=== PATIENT | male | born 1990 | race Caucasian/White ===

== ENCOUNTER 2021-07-11 22:11 | Inpatient (IN) ==
[2021-07-11] MEDS ORDERED: PIPERACILLIN/TAZOBACTAM 4.5 GM/120 ML BAG IV ONE (22:24)
[2021-07-11] MEDS ORDERED: PIPERACILL/TAZOBAC CONSULT ACTIVE PRN (22:24)
[2021-07-11 22:56] LABS: Basophils # (auto) 0.02 K/uL (0-0.2); Basophils % (auto) 0.1 %; Eosinophils # (auto) 0.11 K/uL (0-0.5); Eosinophils % (auto) 0.6 %; Hematocrit (blood only) 43.5 % (42-52); Hemoglobin 15.7 g/dL (14.0-18.0); Immature Granulocytes # (auto) 0.09 K/uL (0.00-0.02); Immature Granulocytes % (auto) 0.5 %; Lymphocytes # (auto) 3.03 K/uL (1.2-3.4); Lymphocytes % (auto) 17.1 %; Mean Corpuscular Hemoglobin 32.8 pg (25-34); Mean Corpuscular Hgb Conc 36.1 g/dL (32-36); Mean Platelet Volume 11.1 fL (7.4-10.4); Monocytes % (auto) 9.6 %; Neutrophils # (auto) 12.72 K/uL (1.4-6.5); Neutrophils % (auto) 72.1 %; Platelet Count 236 K/uL (130-400); RDW Coefficient of Variation 12.3 % (11.5-14.5); RDW Standard Deviation 40.7 fL (36.4-46.3); Red Blood Count 4.78 M/uL (4.7-6.1); White Blood Count 17.67 K/uL (4.8-10.8)
[2021-07-11] MEDS ORDERED: SODIUM CHLORIDE 0.9% 1000ML 1,000 ML IV ONE (23:05)
[2021-07-11 23:06] LABS: INR 0.9 (0.9-1.1); Partial Thromboplastin Ratio 0.9; Partial Thromboplastin Time 24.7 Seconds (21.0-31.0); Prothrombin Time 9.3 Seconds (9.0-12.0)
[2021-07-11 23:11] LABS: Calcium 8.9 mg/dl (8.5-10.1); Est GFR (African American) 100.2 ml/min; Est GFR (Non-African American) 86.4 ml/min; Magnesium 2.3 mg/dl (1.8-2.4); Potassium 3.8 mmol/L (3.5-5.1)
[2021-07-11 23:13] LABS: Bilirubin,Total 1.1 mg/dl (0.2-1); Globulin 4.2 gm/dl (2.5-4.0); Total Protein 8.2 gm/dl (6.4-8.2)
--- NOTE | 2021-07-11 23:38 | Emergency Department Note ---
History of Present Illness General Chief complaint: Arm Pain Stated complaint: RIGHT ARM PAIN Time Seen by Provider: 07/11/21 22:17 History of Present Illness Maximum Pain Intensity: 6 This 30-year-old who was seen here yesterday for dog bite to the right forearm that was sutured presents to the ER complaining of infection to the right forearm Location: Right forearm Quality: Red and swollen Severity: Moderate Duration: Today Timing: Today Context: Patient was concerned and came in Modifying factors: better with nothing; worse with palpation Patient states the redness is gotten worse throughout the day. He has been taking his Augmentin. Patient denies chest pain, dyspnea, fevers, flulike illness. Home Medications Medication Instructions Recorded Confirmed Type amoxicillin 875 mg-potassium 1 tab PO BID #8 tab 07/10/21 07/11/21 Rx clavulanate 125 mg tablet (Augmentin) bupropion HCl 300 mg 24 hr tablet, 300 mg PO DAILY 07/10/21 07/11/21 History extended release levocetirizine 5 mg tablet 5 mg PO QPM 07/10/21 07/11/21 History Allergies Allergy/AdvReac Type Severity Reaction Status Date / Time Sulfa (Sulfonamide Allergy Unknown UNKNOWN--HAPPENED Unverified 07/11/21 22:30 Antibiotics) A CHILD SEAFOOD Allergy Intermediate Hives Uncoded 07/11/21 22:30 Past Med/Surg History Medical History Depression Surgical History No significant past surgical history Social History Smoking Status: Former smoker Tobacco Type: Cigarettes Preferred Language: Serbian marital status: Single current occupational status: employed Feels Safe at Home: Yes Review of Systems A total of 10 systems reviewed and were otherwise negative Physical Exam Vital Signs Vital Signs - 24 hr 07/11/21 22:12 07/11/21 23:11 07/11/21 23:14 Temperature 36.7 C Temperature Source Temporal Artery Scan Pulse Rate 114 H 115 H Pulse Rate [Finger] 114 H Respiratory Rate 20 18 22 Respiratory Effort / Characteristics Non-Labored Spontaneous Non-Labored Spontaneous Respiratory Depth Normal Normal Blood Pressure 145/90 H Blood Pressure [Left Arm] 165/129 H Blood Pressure Mean 108 Blood Pressure Mean [Left Arm] 141 Blood Pressure Position Sitting Pulse Oximetry 96 100 100 Oxygen Delivery Method Room Air Room Air Room Air Sepsis Recent Fever Within 48 Hours No Sepsis New/Unexplained Change in Mental Status N/A Sepsis Action Taken by Nursing No Action Required VITALS: Vitals are noted on the nurse's note and reviewed by myself. Vital signs stable. GENERAL: Pleasant male, in no acute distress, nondiaphoretic, well-developed well-nourished. SKIN: Capillary reflex less than 2 seconds. Right forearm with extensive cellulitis with lymphadenitis extending up to the bicep region HEENT: Normocephalic. PERRLA. EOMI. Nares patent. Mucous membranes moist. Neck is supple without nuchal rigidity. HEART: Regular rate and rhythm without murmurs gallops or rubs. LUNGS: Clear to auscultation bilaterally without wheezes, rales or rhonchi. No retractions or accessory muscle use. ABDOMEN: Positive bowel sounds x 4. Normal tympanic percussion. Soft, nontender, without masses or organomegaly. Patel sign negative. No guarding or rebound tenderness. MUSCULOSKELETAL: No gross musculoskeletal defects. Right forearm tender to palpation. Sutures were opened up and a wound culture was taken moderate amount of bloody purulent material was expressed. NEURO: Patient was alert and oriented to person place and time. No focal neurological deficits. Course Administered Medications Discontinued Medications Piperacillin Sod/Tazobactam Sod (Zosyn) 4.5 gm in 120 mls @ 240 mls/hr IV NOW ONE Stop: 07/11/21 22:53 Last Infusion: 07/11/21 23:39 Dose: 0 mls/hr Documented by: [id number] Admin: 07/11/21 22:51 Dose: 240 mls/hr Documented by: [id number] Sodium Chloride (Nss 1000ml) 1,000 mls @ 999 mls/hr IV .Q1H1M ONE Stop: 07/12/21 00:05 Last Admin: 07/11/21 23:17 Dose: 999 mls/hr Documented by: [id number] Medical Decision Making Medical Records Attestation: I reviewed the patient's medical records. Home Medications Current Medication List: was personally reviewed by me Laboratory Data Attestation: I reviewed the patient's lab results. Result diagrams: 07/11/21 22:30 07/11/21 22:30 Lab Results 07/11/21 07/11/21 07/11/21 Range/Units 22:30 22:30 22:30 WBC 17.67 H (4.8-10.8) K/uL RBC 4.78 (4.7-6.1) M/uL Hgb 15.7 (14.0-18.0) g/dL Hct 43.5 (42-52) % MCV 91.0 (80-100) fL MCH 32.8 (25-34) pg MCHC 36.1 H (32-36) g/dL RDW Std Deviation 40.7 (36.4-46.3) fL RDW Coeff of Eloisa 12.3 (11.5-14.5) % Plt Count 236 (130-400) K/uL MPV 11.1 H (7.4-10.4) fL Immature Gran % (Auto) 0.5 % Neut % (Auto) 72.1 % Lymph % (Auto) 17.1 % [place] % (Auto) 9.6 % Eos % (Auto) 0.6 % Baso % (Auto) 0.1 % Neut # (Auto) 12.72 H (1.4-6.5) K/uL Lymph # (Auto) 3.03 (1.2-3.4) K/uL [place] # (Auto) 1.70 H (0.11-0.59) K/uL Eos # (Auto) 0.11 (0-0.5) K/uL Baso # (Auto) 0.02 (0-0.2) K/uL Immature Gran # (Auto) 0.09 H (0.00-0.02) K/uL PT 9.3 (9.0-12.0) Seconds INR 0.9 (0.9-1.1) APTT 24.7 (21.0-31.0) Seconds PTT Ratio 0.9 Sodium 137 (136-145) mmol/L Potassium 3.8 (3.5-5.1) mmol/L Chloride 106 (98-107) mmol/L Carbon Dioxide 26 (21-32) mmol/L Anion Gap 5.0 (3-11) BUN 9 (7-18) mg/dl Creatinine 1.14 (0.6-1.4) mg/dl Est Cr Clr Drug Dosing 122.0 ml/min Est GFR ( Amer) 100.2 ml/min Est GFR (Non-Af Amer) 86.4 ml/min BUN/Creatinine Ratio 8.0 L (10-20) Glucose 106 H (70-99) mg/dl Lactate (0.4-2.0) mmol/L Calcium 8.9 (8.5-10.1) mg/dl Magnesium 2.3 (1.8-2.4) mg/dl Total Bilirubin 1.1 H (0.2-1) mg/dl AST 28 (15-37) U/L ALT 69 (12-78) U/L Alkaline Phosphatase 80 (45-117) U/L Total Protein 8.2 (6.4-8.2) gm/dl Albumin 4.0 (3.4-5.0) gm/dl Globulin 4.2 H (2.5-4.0) gm/dl Albumin/Globulin Ratio 1.0 (0.9-2) COVID-19 Eval Order SARS-CoV-2 (PCR) (Negative) 07/11/21 07/11/21 07/11/21 Range/Units 22:30 22:42 22:42 WBC (4.8-10.8) K/uL RBC (4.7-6.1) M/uL Hgb (14.0-18.0) g/dL Hct (42-52) % MCV (80-100) fL MCH (25-34) pg MCHC (32-36) g/dL RDW Std Deviation (36.4-46.3) fL RDW Coeff of Eloisa (11.5-14.5) % Plt Count (130-400) K/uL MPV (7.4-10.4) fL Immature Gran % (Auto) % Neut % (Auto) % Lymph % (Auto) % [place] % (Auto) % Eos % (Auto) % Baso % (Auto) % Neut # (Auto) (1.4-6.5) K/uL Lymph # (Auto) (1.2-3.4) K/uL [place] # (Auto) (0.11-0.59) K/uL Eos # (Auto) (0-0.5) K/uL Baso # (Auto) (0-0.2) K/uL Immature Gran # (Auto) (0.00-0.02) K/uL PT (9.0-12.0) Seconds INR (0.9-1.1) APTT (21.0-31.0) Seconds PTT Ratio Sodium (136-145) mmol/L Potassium (3.5-5.1) mmol/L Chloride (98-107) mmol/L Carbon Dioxide (21-32) mmol/L Anion Gap (3-11) BUN (7-18) mg/dl Creatinine (0.6-1.4) mg/dl Est Cr Clr Drug Dosing ml/min Est GFR ( Amer) ml/min Est GFR (Non-Af Amer) ml/min BUN/Creatinine Ratio (10-20) Glucose (70-99) mg/dl Lactate 1.3 (0.4-2.0) mmol/L Calcium (8.5-10.1) mg/dl Magnesium (1.8-2.4) mg/dl Total Bilirubin (0.2-1) mg/dl AST (15-37) U/L ALT (12-78) U/L Alkaline Phosphatase (45-117) U/L Total Protein (6.4-8.2) gm/dl Albumin (3.4-5.0) gm/dl Globulin (2.5-4.0) gm/dl Albumin/Globulin Ratio (0.9-2) COVID-19 Eval Order Covid19 at [facility] SARS-CoV-2 (PCR) NEGATIVE (Negative) Imaging Data Attestation: I personally reviewed and interpreted this imaging study as follows: [facility] Narrative Prior records reviewed and summarized as above. Triage Nursing notes reviewed. Additional history obtained from family. The patient's history was concerning for swelling and redness of the skin. Differential diagnosis: Etiologies such as infected dog bite cellulitis, abscess, MRSA infection, DVT, necrotizing fasciitis, dermatitis, drug eruption, as well as others were entertained.. Physical examination: The physical examination was consistent with infected dog bite ER treatment provided: Zosyn, IV fluids, wound culture sutures were opened up and moderate amount of of Purulent bloody material was expressed. On reassessment the patient felt better. Diagnostics interpreted by me: The labs revealed leukocytosis, blood culture pending Wound culture pending Negative lactic acid Imaging studies: Forearm x-ray with soft tissue swelling, no fracture or foreign body per my interpretation Consultation: A consultation was placed with the hospitalist. The case was discussed and diagnostics were reviewed. The patient was evaluated in the ER for further treatment. This appears to be infected dog bite. Patient started on antibiotics. Wound culture was sent. Sutures were opened up. Patient is agreeable to admission. By the evaluation outlined above emergent etiologies such as necrotizing fasciitis, DVT, as well as others were deemed relatively unlikely. The pt informed about the findings as listed above. All questions were answered and pleased with the treatment. The chart was completed utilizing [employer] Speech voice recognition software. Grammatical errors, random word insertions, pronoun errors, and incomplete sentences are an occassional consequence of this system due to software limitations, ambient noise, and hardware issues. Any formal questions or concerns about the content, text, or information contained within the body of this dictation should be directly addressed to the physician podiatrist assistant for clarification. Impression & Plan Infected dog bite of forearm, Failure of outpatient treatment Discharge Plan Visit Data Chief Complaint: Arm Pain Stated Complaint: RIGHT ARM PAIN ED Provider: Alfie Wood ED Midlevel Provider: Lona Ernst Discharge Problem: Infected dog bite of forearm, Failure of outpatient treatment Patient Disposition: Admitted As Inpatient Condition: Good Forms Stand Alone Forms: Garlik Prescriptions Prescriptions: No Action bupropion HCl 300 mg tablet extended release 24 hr 300 mg PO DAILY RF: 0 levocetirizine 5 mg tablet 5 mg PO QPM RF: 0 amoxicillin-pot clavulanate [Augmentin] 875-125 mg tablet 1 tab PO BID Qty: 8 RF: 0 Referrals Referrals: Chaitanya Jarvis DO [Primary Care Provider] - Discharge Problem: Infected dog bite of forearm Qualifiers: Encounter type: initial encounter Laterality: right Qualified Code(s): S51.851A - Open bite of right forearm, initial encounter
[2021-07-12 00:56] LABS: Thyroid Stimulating Hormone 2.11 uIu/ml (0.300-4.500)
--- NOTE | 2021-07-12 00:58 | History & Physical Report ---
Date of Service July 12, 2021 Assessment & Plan (1) Sepsis: Plan: Secondary to infected wound secondary to dog bite injury, right forearm rule out abscess Failed outpatient treatment Situational hypertension Medical telemetry CS, Zosyn CT right forearm RE swelling rule out abscess Orthopedics consult Re: Right forearm swelling N.p.o. until patient seen by Orthopedics in anticipation of procedure. Analgesia DVT prophylaxis. SCDs RE bloody right forearm drainage Full code Text document was generated using [employer] voice recognition software. It may contain grammatical or spelling errors. Kindly contact undersigned for clarification of any documentation item in question. History of Present Illness Chief Complaint: Worsening right forearm swelling Primary Care Provider: Chaitanya Jarvis DO History obtained from patient, family, and records. Medical history significant for allergic rhinitis, GERD. Patient was bitten on the right forearm by his girlfriend's parents rescue dog 2 days ago. Subsequent swelling. Patient consulted ER where subsequent wound repair was done. Patient discharged on Augmentin course. Worsening swelling despite compliance with antibiotic regimen. Temperature of 102 at home. No chest pain, no S OB. At the ER, sutures from right forearm were removed. Subsequent purulent bloody drainage noted. IV Zosyn given at the ER. 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[employer] Allergies Allergy/AdvReac Type Severity Reaction Status Date / Time shellfish derived Allergy Intermediate Hives Verified 07/12/21 09:14 Sulfa (Sulfonamide Allergy Unknown UNKNOWN--HAPPENED Unverified 07/11/21 22:30 Antibiotics) A CHILD Fish Containing Products Allergy Verified 07/12/21 09:13 Home Medications Medication Instructions Recorded Confirmed Type amoxicillin 875 mg-potassium 1 tab PO BID #8 tab 07/10/21 07/11/21 Rx clavulanate 125 mg tablet (Augmentin) bupropion HCl 300 mg 24 hr tablet, 300 mg PO DAILY 07/10/21 07/11/21 History extended release levocetirizine 5 mg tablet 5 mg PO QPM 07/10/21 07/11/21 History Past Med/Surg History Medical History Depression Surgical History No significant past surgical history Social History Smoking Status: Former smoker Tobacco Type: Cigarettes Do You Dip or Chew Tobacco: No; Hx Alcohol Use: Yes Alcohol type: hard liquor Hx Substance Use: No Preferred Language: Setswana Communication Ability: Effective 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 Beliefs That Will Affect Care: None marital status: Single Current Living Situation: Spouse current occupational status: employed Other Information That Helps Us Care for You: No Feels Safe at Home: Yes Safety Concerns: Feels Safe At This Time Assistive Devices: None Review of Systems Review of Systems: As per HPI, all 10 systems reviewed, all other ROS negative Physical Exam Physical Exam: GENERAL: Comfortable, morbidly obese, pleasant, no respiratory distress SKIN: Normal color, warm HEENT: [place] palpebral conjunctivae, no ptosis, dry buccal mucosa NECK : Supple, short neck, no tenderness CHEST : CTA, no tenderness HEART : Tachycardic, no obvious murmurs ABDOMEN: Some distention, nontender EXTREMITIES : Tender right forearm induration with serosanguineous drainage, minimal LE swelling/tenderness, no other conspicuous deformities noted NEUROLOGIC : Coherent, no facial asymmetry, no other gross focality Results & Data Results & Data ([facility]) Vital Signs (Past 12 Hours) Vital Signs Temp Pulse Pulse Resp BP BP Pulse Ox 07/11/21 23:14 115 H 22 100 07/11/21 23:11 114 H 18 165/129 H 100 07/11/21 22:12 36.7 C 114 H 20 145/90 H 96 Laboratory Results Laboratory Results WBC 17.67 K/uL (4.8-10.8) H 07/11/21 22:30 RBC 4.78 M/uL (4.7-6.1) 07/11/21 22:30 Hgb 15.7 g/dL (14.0-18.0) 07/11/21 22:30 Hct 43.5 % (42-52) 07/11/21 22:30 MCV 91.0 fL (80-100) 07/11/21 22:30 MCH 32.8 pg (25-34) 07/11/21 22:30 MCHC 36.1 g/dL (32-36) H 07/11/21 22:30 RDW Std Deviation 40.7 fL (36.4-46.3) 07/11/21: RDW Coeff of Eloisa 12.3 % (11.5-14.5) 07/11/21: Plt Count 236 K/uL (130-400) 07/11/21 22: MPV 11.1 fL (7.4-10.4) H 07/11/21 22:30 Immature Gran % (Auto) 0.5 % 07/11/21: Neut % (Auto) 72.1 % 07/11/21: Lymph % (Auto) 17.1 % 07/11/21: Winn % (Auto) 9.6 % 07/11/21: Eos % (Auto) 0.6 % 07/11/21: Baso % (Auto) 0.1 % 07/11/21: Neut # (Auto) 12.72 K/uL (1.4-6.5) H 07/11/21 22:30 Lymph # (Auto) 3.03 K/uL (1.2-3.4) 07/11/21 22:30 Winn # (Auto) 1.70 K/uL (0.11-0.59) H 07/11/21 22:30 Eos # (Auto) 0.11 K/uL (0-0.5) 07/11/21 22: Baso # (Auto) 0.02 K/uL (0-0.2) 07/11/21: Immature Gran # (Auto) 0.09 K/uL (0.00-0.02) H 07/11/21 22:30 PT 9.3 Seconds (9.0-12.0) 07/11/21:30 INR 0.9 (0.9-1.1) 07/11/21: APTT 24.7 Seconds (21.0-31.0) 07/11/21: PTT Ratio 0.9 07/11/21 22:30 Sodium 137 mmol/L (136-145) 07/11/21 22:30 Potassium 3.8 mmol/L (3.5-5.1) 07/11/21: Chloride 106 mmol/L (98-107) 07/11/21 22:30 Carbon Dioxide 26 mmol/L (21-32) 07/11/21 22:30 Anion Gap 5.0 (3-11) 07/11/21 22:30 BUN 9 mg/dl (7-18) 07/11/21 22:30 Creatinine 1.14 mg/dl (0.6-1.4) 07/11/21 22:30 Est Cr Clr Drug Dosing 122.0 ml/min 07/11/21 22:30 Est GFR ( Amer) 100.2 ml/min 07/11/21 22:30 Est GFR (Non-Af Amer) 86.4 ml/min 07/11/21 22:30 BUN/Creatinine Ratio 8.0 (10-20) L 07/11/21 22:30 Glucose 106 mg/dl (70-99) H 07/11/21 22:30 Lactate 1.3 mmol/L (0.4-2.0) 07/11/21 22:30 Calcium 8.9 mg/dl (8.5-10.1) 07/11/21 22:30 Magnesium 2.3 mg/dl (1.8-2.4) 07/11/21 22:30 Total Bilirubin 1.1 mg/dl (0.2-1) H 07/11/21 22:30 AST 28 U/L (15-37) 07/11/21 22:30 ALT 69 U/L (12-78) 07/11/21 22:30 Alkaline Phosphatase 80 U/L (45-117) 07/11/21 22:30 Total Protein 8.2 gm/dl (6.4-8.2) 07/11/21 22:30 Albumin 4.0 gm/dl (3.4-5.0) 07/11/21 22:30 Globulin 4.2 gm/dl (2.5-4.0) H 07/11/21 22:30 Albumin/Globulin Ratio 1.0 (0.9-2) 07/11/21 22:30 TSH 2.110 uIu/ml (0.300-4.500) 07/11/21 22:30 COVID-19 Eval Order Covid19 at [facility] 07/11/21 22:42 SARS-CoV-2 (PCR) NEGATIVE (Negative) 07/11/21 22:42 Diagnostic Findings Chest x-ray as per my interpretation no congestion EKG as per my interpretation : Rate 130, sinus tachycardia, normal axis, incomplete RBBB, T wave abnormalities inferior leads Code Status & VTE Plan VTE Prophylaxis Plan VTE Prophylaxis will be ordered: Yes
[2021-07-12] MEDS ORDERED: OPTIRAY 320 100ml IV ONE (02:51)
[2021-07-12] MEDS ORDERED: LORazepam 0.5 MG/1 ML VIAL IV PRN (03:07)
[2021-07-12] MEDS ORDERED: PROMETHAZINE HCL 12.5 MG in SODIUM CHLORIDE 0.9% 50 ML IV PRN (03:07)
[2021-07-12] MEDS: NSS + 20MEQ KCL 20 MEQ/1,000 ML BAG IV SCH ×2 (03:42→15:17)
[2021-07-12 05:22] LABS: Basophils # (auto) 0.02 K/uL (0-0.2); Basophils % (auto) 0.1 %; Eosinophils # (auto) 0.05 K/uL (0-0.5); Eosinophils % (auto) 0.3 %; Hematocrit (blood only) 39.9 % (42-52); Hemoglobin 14.2 g/dL (14.0-18.0); Immature Granulocytes # (auto) 0.08 K/uL (0.00-0.02); Immature Granulocytes % (auto) 0.5 %; Lymphocytes # (auto) 2.18 K/uL (1.2-3.4); Lymphocytes % (auto) 12.9 %; Mean Corpuscular Hgb Conc 35.6 g/dL (32-36); Mean Corpuscular Volume 89.9 fL (80-100); Mean Platelet Volume 10.9 fL (7.4-10.4); Monocytes # (auto) 1.49 K/uL (0.11-0.59); Monocytes % (auto) 8.8 %; Neutrophils # (auto) 13.13 K/uL (1.4-6.5); Neutrophils % (auto) 77.4 %; Platelet Count 209 K/uL (130-400); RDW Coefficient of Variation 12.4 % (11.5-14.5); RDW Standard Deviation 40.4 fL (36.4-46.3); Red Blood Count 4.44 M/uL (4.7-6.1); White Blood Count 16.95 K/uL (4.8-10.8)
[2021-07-12 05:48] LABS: BUN Creatinine Ratio 7.8 (10-20); Calcium 8.5 mg/dl (8.5-10.1); Creatinine Clr Calc Pharmacy 162.1 ml/min; Est GFR (African American) 128.1 ml/min; Est GFR (Non-African American) 110.5 ml/min
[2021-07-12] MEDS: PIPERACILLIN/TAZOBACTAM 4.5 GM in DEXTROSE 5% 100 ML IV SCH ×3 (05:59→21:31)
--- NOTE | 2021-07-12 07:35 | CT Scan Report ---
CT forearm RT w con HISTORY: 30 years-old Male swelling soft tissue injury of the right forearm status post dogbite. COMPARISON: Right forearm radiographs 07/11/2021 TECHNIQUE: Multiple axial CT images of the right forearm were obtained following the intravenous mini stration of 93 mL Optiray 320. A dose lowering technique was used consistent with the principals of Malvin BANGURA. FINDINGS: Mild to moderate subcutaneous edema involves the volar aspect of the forearm extending from the wrist to the elbow. Mild associated skin thickening. Trace areas of subcutaneous emphysema. Additional ana daniel subcutaneous edema is noted involving the proximal forearm and elbow. No abscess or opaque foreig n body. The musculature of the forearm is within normal limits. The visualized tendons appear unremar kable. No acute fracture, dislocation or osseous erosion. IMPRESSION: 1. Mild to moderate subcutaneous edema of the volar forearm extends from the elbow to the wrist. Punc fontaine foci of subcutaneous emphysema. Findings are suggestive of cellulitis with penetrating trauma. N o abscess. 2. No acute bony abnormality. ACT 112: Negative or not required by law. The above report was generated using voice recognition software. It may contain grammatical, syntax o r spelling errors. Electronically signed by: Mikie Shah M.D. 07/12/2021 7:34 AM
[2021-07-12] MEDS: buPROPion XL 300 MG TABCR PO SCH (07:59)
[2021-07-12] MEDS: ACETAMINOPHEN 325 MG TAB PO PRN (07:59)
--- NOTE | 2021-07-12 10:03 | XRay Report ---
XR forearm RT 2V CLINICAL HISTORY: DOG BITE, INFX COMPARISON: None. DISCUSSION: The bones and joint spaces appear intact. There is no evidence of fracture, dislocation o r bony disease. There is no evidence for soft tissue swelling. IMPRESSION: Negative study. ACT 112: Negative or not required by law. The above report was generated using voice recognition software. It may contain grammatical, syntax o r spelling errors. Electronically signed by: Senait Daley DO 07/12/2021 10:02 AM
--- NOTE | 2021-07-12 10:04 | XRay Report ---
XR chest 1V portable CLINICAL HISTORY: sepsis COMPARISON STUDY: No previous studies for comparison. FINDINGS: No pneumothorax. No pleural effusion. No large infiltrates or consolidative lesions are seen. Lung volumes are decreased with crowded lung markings. Cardiomediastinal silhouette is within normal limits in size. No significant pulmonary vascular congestion.. Osseous structures: unremarkable IMPRESSION: 1. No acute pulmonary process. ACT 112: Negative or not required by law. The above report was generated using voice recognition software. It may contain grammatical, syntax o r spelling errors. Electronically signed by: Senait Daley DO 07/12/2021 10:03 AM
--- NOTE | 2021-07-12 10:22 | Hospitalist Progress Note ---
Date of Service July 12, 2021 Assessment & Plan (1) Sepsis: Plan: Zosyn started last night with erythema spreading beyond the area demarcated last evening. Still slightly tachy but overall improved clinically. Minimal pain present. Swelling present. Ortho is on top of this and surgeon will be re- evaluating him this afternoon. Tetanus confirmed UTD. Public health will question him about the dog and assess his risk for rabies. Daptomycin added for now. ID consulted. Supportive care efforts as needed. (2) Infected dog bite of forearm: Plan: per plan above. CT forearm revealed no evidence of abscess wtih trace areas of subcutaneous emphysema around the puncture wound. (3) Depression: Plan: cont Bupropion per home regimen. (4) DVT prophylaxis: Plan: SCDs/ambulation in case of need for urgent procedure Full Code Dispo-cont telemetry monitoring. Pending wound improvement overall. Sunni Johnson DO [facility] Hospitalist Admission and Anticipated Discharge Date Admission Date: July 12, 2021 Subjective 30 yo M presented with sepsis after a dogbite to the forearm. Seen in the ER on Monday and he was started on Augmentin, returning this admission after approximately 3 doses. Today he reports minimal pain. Zosyn started overnight and erythema spreading outside of the original lines. Swelling and erythema present. Patient reports slight pain when he bends the flexes the right wrist. Denies fevers, chest pain, SOB or other issues. Tetanus vaccine UTD (see below). DTP (Tetramune) 07/15/1992, 04/28/1992, 03/15/1992 DTaP-04/09/1997, 07/22/1993 TDAP (Boostrix) 08/28/2018 Review of Systems Review of Systems: All systems were reviewed and negative except as indicated in HPI above. Physical Exam Physical Exam: CONSTITUTIONAL: obese, vitals as above, generally well- appearing EYES: normal conjunctivae, no scleral icterus, MMM ENT: external ear and nose normal, MMM NECK: trachea midline RESPIRATORY: clear to auscultation bilaterally, no crackles, rales or wheezes, normal respiratory effort CARDIOVASCULAR: tachy rate and rhythm, S1 and 2 heard without murmurs, gallops or rubs, no JVD, no peripheral edema GASTROINTESTINAL: soft, nontender, nondistended, no guarding. MUSCULOSKELETAL: strength 5/5 throughout, head is normocephalic and atraumatic SKIN: warm and dry NEUROLOGIC: No facial palsy, no dysarthria. CN 2-12 grossly intact, no sensory deficit, normal cognition, normal speech, no tremor PSYCHIATRIC: alert cooperative and oriented to person, place and time. Euthymic mood, makes good eye contact, language grossly intact, recent and remote memory grossly intact. LYMPHATIC: no LAD Results & Data Results & Data ([facility]) Vital Signs (Past 12 Hours) Vital Signs Temp Pulse Pulse Resp BP BP Pulse Ox 07/12/21 08:06 122 H 21 118/68 95 07/12/21 08:00 122 H 07/12/21 07:20 36.9 C 122 H 18 118/68 95 07/12/21 03:08 37.0 C 108 H 16 159/90 H 100 07/12/21 02:27 110 H 21 141/85 H 98 07/12/21 01:32 112 H 21 154/79 H 96 07/11/21 23:14 115 H 22 100 07/11/21 23:11 114 H 18 165/129 H 100 Laboratory Results Short CBC 07/11/21 07/12/21 Range/Units 22:30 05:13 WBC 17.67 H 16.95 H (4.8-10.8) K/uL Hgb 15.7 14.2 (14.0-18.0) g/dL Hct 43.5 39.9 L (42-52) % Plt Count 236 209 (130-400) K/uL BMP 07/11/21 07/12/21 22:30 05:13 Sodium 137 139 Potassium 3.8 4.0 Chloride 106 110 H Carbon Dioxide 26 26 BUN 9 7 Creatinine 1.14 0.93 Glucose 106 H 111 H Calcium 8.9 8.5 Liver Function 07/11/21 Range/Units 22:30 Total Bilirubin 1.1 H (0.2-1) mg/dl AST 28 (15-37) U/L ALT 69 (12-78) U/L Alkaline Phosphatase 80 (45-117) U/L Albumin 4.0 (3.4-5.0) gm/dl Medications Administered Current Inpatient Medications Acetaminophen (Acetaminophen 325 Mg Tab) 650 mg PO Q4H PRN PRN Reason: Pain or Fever Stop: 08/11/21 03:06 Last Admin: 07/12/21 07:59 Dose: 650 mg Documented by: Bupropion HCl (Bupropion Xl 300 Mg Tabcr) 300 mg PO DAILY LALA Stop: 08/11/21 08:59 Last Admin: 07/12/21 07:59 Dose: 300 mg Documented by: Cetirizine HCl (Cetirizine Hcl 10 Mg Tablet) 5 mg PO QPM LALA Stop: 08/11/21 20:59 Promethazine HCl 12.5 mg/ (Sodium Chloride) 50.5 mls @ 202 mls/hr IV Q6H PRN PRN Reason: Nausea And Vomiting Stop: 08/11/21 03:06 Lorazepam (Ativan) 0.5 mg in 1 mls @ 1 mls/min IV Q4H PRN PRN Reason: Anxiety/Agitation Stop: 08/11/21 03:06 Potassium Chloride/Sodium Chloride (Normal Saline W/20 Meq Kcl) 20 meq in 1,000 mls @ 100 mls/hr IV .Q10H LALA Stop: 08/11/21 03:29 Last Infusion: 07/12/21 09:39 Dose: 100 mls/hr Documented by: Piperacillin Sod/Tazobactam (Sod 4.5 gm/ Dextrose) 120 mls @ 30 mls/hr IV Q8H LALA; Protocol Stop: 07/19/21 04:59 Last Infusion: 07/12/21 10:10 Dose: Infused Documented by: Miscellaneous Information (Piperacill/Tazobac Consult Active) 1 ea N/A UD PRN PRN Reason: Consult Stop: 08/10/21 22:23 Morphine Sulfate (Morphine Sulfate 4 Mg/Ml 1 Ml Carp\Vial) 4 mg IV Q4H PRN PRN Reason: Pain Stop: 07/26/21 03:06 Tramadol HCl (Tramadol Hcl 50 Mg Tablet) 25 - 50 mg PO Q4H PRN PRN Reason: Pain Stop: 08/11/21 03:06 (1) Infected dog bite of forearm Encounter type: initial encounter Laterality: right Qualified Code(s): S51.851A - Open bite of right forearm, initial encounter; L08.9 - Local infection of the skin and subcutaneous tissue, unspecified; W54.0XXA - Bitten by dog, initial encounter
--- NOTE | 2021-07-12 12:00 | Orthopedic Consultation ---
Date of Consultation July 12, 2021 Assessment & Plan (1) Infected dog bite of forearm: Continue IV antibiotics at this time. He has not been 24 hours yet with IV antibiotics and is already starting to see some resolving of some of his erythema. Continue elevation of the right upper extremity at least on [address] scan reviewed with Dr. Cardenas. No obvious abscesses noted. No surgery at this time. Okay for the patient to eat today. I discussed the case with Dr. Johnson. Plan to make him n.p.o. at midnight just in case but we will continue to follow and see how he responds to the antibiotics. Addendum 1700. Will assess stat Gram stain and patient may require incision and drainage and debridement if he continues have spreading erythema by tomorrow. Continue IV antibiotics for now. History of Present Illness Reason for Consultation: Right arm cellulitis status post dog bite Attending Physician: Sunni Johnson, DO History of Present Illness Patient is a 30-year-old male who states that a few days ago, he was bitten by a rescue dog that was owned by his girlfriend's parents. He states that he was going to pet the dog but there was a treat apparently close by and the dog felt he may be trying to take that food source and he lashed out and bit this gentleman on the forearm. He sought medical attention in the emergency room and was seen that day. Per the notes of Robbie Mosley PA-C, he had 2 small lacerations on the fall or aspect of the forearm one being close to 1 cm in length. Small amount of fat protrusion was noted. These wounds were cleansed and then sutured. He was started on Augmentin with plans to return in 10 to 12 days for suture removal. The patient states that over the next 48 hours, he began noticing increasing erythema around the wounds and going distally and proximally on his forearm. He began having increased pain and also began having fevers. He denies any nausea or vomiting, shortness of breath, chest pain. He returned to the emergency room where he was seen by the staff. With the noticeable increase in cellulitis, it was felt that he would need to be admitted for IV antibiotics. We have been asked to see him for his cellulitis. Currently he is sitting up in bed awake and alert. He appears comfortable. He feels that some of the redness has receded somewhat over the last few hours. Continues to have pain in the forearm but is tolerating well. Allergies Allergy/AdvReac Type Severity Reaction Status Date / Time shellfish derived Allergy Intermediate Hives Verified 07/12/21 09:14 Sulfa (Sulfonamide Allergy Unknown UNKNOWN--HAPPENED Unverified 07/11/21 22:30 Antibiotics) A CHILD Home Medications Medication Instructions Recorded Confirmed Type amoxicillin 875 mg-potassium 1 tab PO BID #8 tab 07/10/21 07/11/21 Rx clavulanate 125 mg tablet (Augmentin) bupropion HCl 300 mg 24 hr tablet, 300 mg PO DAILY 07/10/21 07/11/21 History extended release levocetirizine 5 mg tablet 5 mg PO QPM 07/10/21 07/11/21 History Patient History Medical History Depression Surgical History No significant past surgical history Social History Smoking Status: Former smoker Tobacco Type: Cigarettes Do You Dip or Chew Tobacco: No; Hx Alcohol Use: Yes Alcohol type: hard liquor Hx Substance Use: No Preferred Language: Irish Communication Ability: Effective Doctor Of Pharmacy Required: No Beliefs That Will Affect Care: None marital status: Single Current Living Situation: Spouse current occupational status: employed Other Information That Helps Us Care for You: No Feels Safe at Home: Yes Safety Concerns: Feels Safe At This Time Assistive Devices: None Review of Systems 2 Review of Systems: All systems reviewed & are unremarkable except as noted in HPI & below Physical Exam Physical Exam: On examination of his right forearm, on the volar aspect he has a noticeable area of erythema from the to the elbow. He has 2 small puncture wounds from the bite. Sutures appear to have been removed. He has some scant serous drainage noted from these areas. I am able to palpate the volar aspect of the forearm with noticeable tenderness. I cannot appreciate any areas of fluctuance underneath the skin. Palpating the area around the bite olivo does not cause much in the way of any further drainage. Some of the original markings on his arm outlining his erythema show a small amount of resolving erythema proximally. He has no overt tenderness on the dorsal aspect of the forearm. Tenderness mostly over the volar aspect. He has good range of motion of his right wrist hand and fingers. He can make a full fist at this time. He states that he only has a slight amount discomfort in the area just proximal to the wrist when making a fist. I can take all of his fingers of the right hand through passive dorsiflexion. He states that with passive dorsiflexion of the middle finger, it causes him some slight discomfort in the same area just proximal to the wrist. Sensation is intact. Cap refill is less than 2 seconds. He has good range of motion of his right elbow. There is no further erythema going up the arm towards the shoulder. He has no pain in the axilla. On later exam 1699 there is been some slight increase in amount of erythema beyond marked areas and some edema in the volar forearm. I was able to express small amount of pus from both of the incisions and I did get a culture of the pus after it was expressed through the incision. After a small amount of pus was expressed it was only serosanguineous type fluid that can be expressed from the wound. Both wounds are open and have ability to drain. Sterile gauze bandages placed over the wounds. Results & Data ([facility]) Vital Signs (Past 12 Hours) Vital Signs Temp Pulse Pulse Resp BP BP Pulse Ox 07/12/21 11:14 114 H 07/12/21 11:01 37.4 C 113 H 20 140/86 96 07/12/21 08:06 122 H 21 118/68 95 07/12/21 08:00 122 H 07/12/21 07:20 36.9 C 122 H 18 118/68 95 07/12/21 03:08 37.0 C 108 H 16 159/90 H 100 07/12/21 02:27 110 H 21 141/85 H 98 07/12/21 01:32 112 H 21 154/79 H 96 Diagnostic Findings Patient: EARLINE MINOR Date: 07/12/21MR#: [id number]: [address]Acct ID:[id number]: Date: 1990[facility] Zip: [place], [place] [address]Frx: 30Location: 1ESex: MRoom/Bed: [id number] Phy: Sunni Johnson, DODiagnosis: SEPSISPri Phy: Matheus Chaitanya StevensonLeela, DOService Date: 07/12/21Fam Phy:Interpreting Phy: Mikie MaxeicherAdmit Phy: Gomez Tejeda MD Ordering Phy: Gomez Tejeda MD cc: ~ CT forearm RT w con HISTORY: 30 years-old Male swelling soft tissue injury of the right forearm status post dogbite. COMPARISON: Right forearm radiographs 07/11/2021 TECHNIQUE: Multiple axial CT images of the right forearm were obtained following the intravenous ministration of 93 mL Optiray 320. A dose lowering technique was used consistent with the principals of BERNARDO. FINDINGS: Mild to moderate subcutaneous edema involves the volar aspect of the forearm extending from the wrist to the elbow. Mild associated skin thickening. Trace areas of subcutaneous emphysema. Additional dorsal subcutaneous edema is noted involving the proximal forearm and elbow. No abscess or opaque foreign body. The musculature of the forearm is within normal limits. The visualized tendons appear unremarkable. No acute fracture, dislocation or osseous erosion. IMPRESSION: 1. Mild to moderate subcutaneous edema of the volar forearm extends from the elbow to the wrist. Punctate foci of subcutaneous emphysema. Findings are suggestive of cellulitis with penetrating trauma. No abscess. 2. No acute bony abnormality. ACT 112: Negative or not required by law. The above report was generated using voice recognition software. It may contain grammatical, syntax or spelling errors. (1) Infected dog bite of forearm Encounter type: initial encounter Laterality: right Qualified Code(s): S51.851A - Open bite of right forearm, initial encounter; L08.9 - Local infection of the skin and subcutaneous tissue, unspecified; W54.0XXA - Bitten by dog, initial encounter
[2021-07-12] MEDS: DAPTOmycin 400 MG in SYRINGE 0 ML IV SCH (14:36)
[2021-07-12] MEDS: traMADol HCL 50 MG TABLET PO PRN (14:43)
--- NOTE | 2021-07-12 16:26 | Electrocardiogram Report ---
Test Reason : Blood Pressure : / mmHG Vent. Rate : 130 BPM Atrial Rate : 130 BPM P-R Int : 164 ms QRS Dur : 092 ms QT Int : 290 ms P-R-T Axes : 038 001 020 degrees QTc Int : 426 ms Sinus tachycardia Incomplete right bundle branch block Abnormal ECG When compared with ECG of 26-APR-2018 13:54, No significant change was found Confirmed by Robert Khan ([id number]) on 07/12/2021 4:26:18 PM Referred By: REFERRED SELF Confirmed By:Robert Khan
[2021-07-12] MEDS ORDERED: SODIUM CHLORIDE 0.9% 1000ML 1,000 ML IV ONE (19:23)
[2021-07-12] MEDS: KETOROLAC TROMETHAMINE 15 MG/ML VIAL IV PRN (20:00)
[2021-07-12] MEDS: CETIRIZINE HCL 10 MG TABLET PO SCH (20:00)
[2021-07-13] MEDS: PIPERACILLIN/TAZOBACTAM 4.5 GM in DEXTROSE 5% 100 ML IV SCH ×3 (05:53→20:45)
[2021-07-13] MEDS: KETOROLAC TROMETHAMINE 15 MG/ML VIAL IV PRN ×2 (07:58→16:35)
--- NOTE | 2021-07-13 08:12 | Orthopedic Progress Note ---
Date of Service July 13, 2021 Assessment & Plan (1) Infected dog bite of forearm: Plan: Overall, he appears to be slowly improving. If possible, I will have one of our physicians see him this morning. Currently hypertensive and tachycardic. Previous culture showing pinpoint growth with reincubation. A new surface culture was done by Dr. Cardenas last night. Continue current IV antibiotics and n.p.o. status. Continue elevation. I can recheck him later today to see if there is any further progression or regression. I have discussed the case with Dr. Johnson this morning about current plans. Admission and Anticipated Discharge Date Admission Date: July 12, 2021 Subjective Patient sleeping upon arrival this morning. Easily awoken. States that he thinks his arm is a little bit better this morning. Dr. Cardenas saw the patient late yesterday afternoon and was able to express a small amount of purulence from both wounds and then serosanguineous drainage thereafter. It was scant drainage. Patient is having some pain this morning but he does not appear uncomfortable. No new complaints. Physical Exam Physical Exam: Examining the forearm this morning, his erythema is now a senior center manager color. Continues to remain over the volar aspect of the forearm. There was a section of erythema that was extending out the lateral aspect of the forearm that was marked with a border. This area of erythema has receded. Dressing removed from the bite wound area. He is got some scant serosanguineous drainage noted on the dressing itself. What appeared to be a tiny amount of purulence at the one apex turns out to be a small piece of tissue. This was wiped several times with a sterile 4 x 4. I was unable to express any further serous drainage from the wounds. No crepitus over the aspect of the forearm. No pain in his elbow. He continues to have good range of motion of his right wrist and fingers. Capillary refill is less than 2 seconds. Neurovascular is intact. Results & Data ([facility]) Vital Signs (Past 12 Hours) Vital Signs Temp Pulse Pulse Resp BP Pulse Ox 07/13/21 07:36 37.3 C 118 H 20 141/100 H 96 07/13/21 07:24 85 07/13/21 03:41 36.5 C 92 H 18 119/75 97 07/13/21 00:58 88 07/12/21 23:00 36.8 C 95 H 18 128/79 97 07/12/21 22:19 112 H (1) Infected dog bite of forearm Encounter type: initial encounter Laterality: right Qualified Code(s): S51.851A - Open bite of right forearm, initial encounter; L08.9 - Local infection of the skin and subcutaneous tissue, unspecified; W54.0XXA - Bitten by dog, initial encounter
[2021-07-13 08:13] LABS: Basophils # (auto) 0.02 K/uL (0-0.2); Basophils % (auto) 0.1 %; Eosinophils # (auto) 0.13 K/uL (0-0.5); Eosinophils % (auto) 0.9 %; Hematocrit (blood only) 41.1 % (42-52); Hemoglobin 14.5 g/dL (14.0-18.0); Immature Granulocytes # (auto) 0.07 K/uL (0.00-0.02); Immature Granulocytes % (auto) 0.5 %; Lymphocytes # (auto) 2.06 K/uL (1.2-3.4); Mean Corpuscular Hemoglobin 32.4 pg (25-34); Mean Corpuscular Hgb Conc 35.3 g/dL (32-36); Mean Corpuscular Volume 91.7 fL (80-100); Mean Platelet Volume 10.5 fL (7.4-10.4); Monocytes # (auto) 1.21 K/uL (0.11-0.59); Monocytes % (auto) 8.8 %; Neutrophils % (auto) 74.7 %; Platelet Count 227 K/uL (130-400); RDW Coefficient of Variation 12.3 % (11.5-14.5); RDW Standard Deviation 41.4 fL (36.4-46.3); Red Blood Count 4.48 M/uL (4.7-6.1); White Blood Count 13.69 K/uL (4.8-10.8)
[2021-07-13 08:43] LABS: Calcium 9.3 mg/dl (8.5-10.1); Creatinine Clr Calc Pharmacy 142.6 ml/min; Est GFR (African American) 110.6 ml/min; Est GFR (Non-African American) 95.5 ml/min
[2021-07-13] MEDS: DAPTOmycin 400 MG in SYRINGE 0 ML IV SCH (08:49)
[2021-07-13] MEDS: buPROPion XL 300 MG TABCR PO SCH (08:49)
--- NOTE | 2021-07-13 08:54 | Hospitalist Progress Note ---
Date of Service July 13, 2021 Assessment & Plan (1) Sepsis: Plan: Doing well on Zosyn and Dapto-cont for now Still has extensive erythema and warmth but this and swelling has improved Tachy but afebrile overnight with improvement in pain (2) Cellulitis of right forearm: Plan: plan as above. (3) Infected dog bite of forearm: Plan: plan as above. Low risk rabies-Rig not indicated. Tetanus UTD. conservative wound care. (4) Depression: Plan: cont Bupropion per home regimen. (5) Obesity: Plan: Lifestyle modifications recommended for goal of increased lean muscle mass and decreased percent body fat. (6) DVT prophylaxis: Plan: SCDs/ambulation/Lovenox Full Code Dispo-d/c tele, cont to monitor in the hospital for now. OK to shower. To home in next 1-2 days. Sunni Johnson DO [facility] Hospitalist Admission and Anticipated Discharge Date Admission Date: July 12, 2021 Subjective 30 yo M presented with sepsis after a dogbite to the forearm. Seen in the ER on Monday and he was started on Augmentin, returning this admission after approximately 3 doses. Doing well on Zosyn and Dapto Afebrile overnight but tachy Asymptomatic with min pain from his standpoint bedside procedure by ortho overnight wound culture pending hungry wants to shower. Review of Systems Review of Systems: All systems were reviewed and negative except as indicated in HPI above. Physical Exam Physical Exam: CONSTITUTIONAL: obese, vitals as above, generally well- appearing EYES: normal conjunctivae, no scleral icterus, MMM ENT: external ear and nose normal, MMM NECK: trachea midline RESPIRATORY: clear to auscultation bilaterally, no crackles, rales or wheezes, normal respiratory effort CARDIOVASCULAR: tachy rate and rhythm, S1 and 2 heard without murmurs, gallops or rubs, no JVD, no peripheral edema GASTROINTESTINAL: soft, nontender, nondistended, no guarding. MUSCULOSKELETAL: strength 5/5 throughout, head is normocephalic and atraumatic SKIN: warm and dry, puncture wound in central belly flexor side distal arm with spreading erythema and warmth, improved from yesterday. No drainage or fluctuance. Normal ROM of wrist and elbow on right. NEUROLOGIC: No facial palsy, no dysarthria. CN 2-12 grossly intact, no sensory deficit, normal cognition, normal speech, no tremor PSYCHIATRIC: alert cooperative and oriented to person, place and time. Euthymic mood, makes good eye contact, language grossly intact, recent and remote memory grossly intact. Results & Data Results & Data ([facility]) Vital Signs (Past 12 Hours) Vital Signs Temp Pulse Pulse Resp BP Pulse Ox 07/13/21 07:36 37.3 C 118 H 20 141/100 H 96 07/13/21 07:24 85 07/13/21 03:41 36.5 C 92 H 18 119/75 97 07/13/21 00:58 88 07/12/21 23:00 36.8 C 95 H 18 128/79 97 07/12/21 22:19 112 H Laboratory Results Short CBC 07/13/21 Range/Units 07:52 WBC 13.69 H (4.8-10.8) K/uL Hgb 14.5 (14.0-18.0) g/dL Hct 41.1 L (42-52) % Plt Count 227 (130-400) K/uL BMP 07/13/21 07:52 Sodium 138 Potassium 4.0 Chloride 106 Carbon Dioxide 28 BUN 10 Creatinine 1.05 Glucose 109 H Calcium 9.3 Medications Administered Current Inpatient Medications Acetaminophen (Acetaminophen 325 Mg Tab) 650 mg PO Q4H PRN PRN Reason: Pain or Fever Stop: 08/11/21 03:06 Last Admin: 07/12/21 07:59 Dose: 650 mg Documented by: Bupropion HCl (Bupropion Xl 300 Mg Tabcr) 300 mg PO DAILY LALA Stop: 08/11/21 08:59 Last Admin: 07/13/21 08:49 Dose: 300 mg Documented by: Cetirizine HCl (Cetirizine Hcl 10 Mg Tablet) 5 mg PO QPM LALA Stop: 08/11/21 20:59 Last Admin: 07/12/21 20:00 Dose: 5 mg Documented by: Promethazine HCl 12.5 mg/ (Sodium Chloride) 50.5 mls @ 202 mls/hr IV Q6H PRN PRN Reason: Nausea And Vomiting Stop: 08/11/21 03:06 Lorazepam (Ativan) 0.5 mg in 1 mls @ 1 mls/min IV Q4H PRN PRN Reason: Anxiety/Agitation Stop: 08/11/21 03:06 Piperacillin Sod/Tazobactam (Sod 4.5 gm/ Dextrose) 120 mls @ 30 mls/hr IV Q8H LALA; Protocol Stop: 07/19/21 04:59 Last Admin: 07/13/21 05:53 Dose: 30 mls/hr Documented by: Daptomycin 400 mg/ Syringe 8 mls @ 4 mls/min IV DAILY LALA; Protocol Stop: 07/19/21 14:29 Last Admin: 07/13/21 08:49 Dose: 4 mls/min Documented by: Ketorolac Tromethamine (Ketorolac Tromethamine 15 Mg/Ml Vial) 15 mg IV Q6H PRN PRN Reason: pain/fever Stop: 07/17/21 11:59 Last Admin: 07/13/21 07:58 Dose: 15 mg Documented by: Miscellaneous Information (Piperacill/Tazobac Consult Active) 1 ea N/A UD PRN PRN Reason: Consult Stop: 08/10/21 22:23 Miscellaneous Information (Daptomycin Consult Active) 1 ea N/A UD PRN PRN Reason: Consult Stop: 08/11/21 13:56 Morphine Sulfate (Morphine Sulfate 4 Mg/Ml 1 Ml Carp\Vial) 4 mg IV Q4H PRN PRN Reason: Pain Stop: 07/26/21 03:06 Tramadol HCl (Tramadol Hcl 50 Mg Tablet) 25 - 50 mg PO Q4H PRN PRN Reason: Pain Stop: 08/11/21 03:06 Last Admin: 07/12/21 14:43 Dose: 50 mg Documented by: (1) Infected dog bite of forearm Encounter type: initial encounter Laterality: right Qualified Code(s): S51.851A - Open bite of right forearm, initial encounter; L08.9 - Local infection of the skin and subcutaneous tissue, unspecified; W54.0XXA - Bitten by dog, initial encounter
--- NOTE | 2021-07-13 09:16 | Progress Notes ---
ORTHOPEDIC PROGRESS NOTE DATE OF SERVICE: 07/13/2021 SPECIAL ATTENTION TO: Right arm infection. SUBJECTIVE: This is a gentleman who is a few days status post a dog bite. He presented with increas ing redness and erythema. He has been admitted to the hospital. He states over the past 12 hours, h e has slight decrease in erythema and feels some decrease in pain. I personally reviewed a CAT scan, which does show inflammation in the region of the forearm on the volar aspect, it does show subcutan eous edema. No evidence of abscess. OBJECTIVE: Right forearm examination; the patient has 2 volar puncture wounds. I do not detect any fluctuance and there is no gross purulent drainage. The patient has significant erythema over most o f the volar aspect of the forearm. This is slightly decreased compared to the tracing olivo. Right hand exam; he has full range of motion of the digits. He has negative Kanavel sign. He has negative Tinel's over the carpal tunnel. He has full range of motion of the wrist and elbow without pain or discomfort. ASSESSMENT: Right forearm cellulitis, status post dog bite. PLAN: I discussed findings and treatment with him. At this point in time, I do not see any surgical indication. I do feel this is improving with antibiotics and his white count is decreasing. We carlos bishop observe closely. Should symptoms worsen, we are available for possible surgical treatment. Dangelo bishop continue to follow. I gave him a diet today as there are no surgical indications today. Job ID: [id number]
[2021-07-13] MEDS: CETIRIZINE HCL 10 MG TABLET PO SCH (20:45)
[2021-07-14] MEDS: PIPERACILLIN/TAZOBACTAM 4.5 GM in DEXTROSE 5% 100 ML IV SCH ×3 (04:34→20:53)
[2021-07-14] MEDS: traMADol HCL 50 MG TABLET PO PRN ×2 (04:39→18:08)
[2021-07-14] MEDS: KETOROLAC TROMETHAMINE 15 MG/ML VIAL IV PRN ×3 (07:27→23:36)
[2021-07-14 07:42] LABS: Hematocrit (blood only) 40.8 % (42-52); Hemoglobin 14.3 g/dL (14.0-18.0); Mean Corpuscular Hemoglobin 32.1 pg (25-34); Mean Corpuscular Volume 91.5 fL (80-100); Mean Platelet Volume 10.6 fL (7.4-10.4); Platelet Count 238 K/uL (130-400); RDW Coefficient of Variation 12.1 % (11.5-14.5); RDW Standard Deviation 40.7 fL (36.4-46.3); Red Blood Count 4.46 M/uL (4.7-6.1)
--- NOTE | 2021-07-14 07:57 | Hospitalist Progress Note ---
Date of Service July 14, 2021 Assessment & Plan (1) Sepsis: Plan: Doing well on Zosyn and Dapto-cont for now Still has extensive erythema and warmth but this and swelling has improved Afebrile overnight with improvement in pain Wound culture obtained (07/11) - gram-negative bacilli White blood cell count decreased to 10,000 (07/14) Orthopedics consulted, no surgical intervention at this time, however continue to follow closely ID consulted, further recommendations pending (2) Cellulitis of right forearm: Plan: plan as above. (3) Infected dog bite of forearm: Plan: plan as above. Low risk rabies-Rig not indicated. Tetanus UTD. conservative wound care. (4) Depression: Plan: cont Bupropion per home regimen. (5) Obesity: Plan: Lifestyle modifications recommended (6) DVT prophylaxis: Plan: SCDs/ambulation/Lovenox Full Code Dispo-d/c tele, cont to monitor in the hospital for now. OK to shower. To home in next 1-2 days. Admission and Anticipated Discharge Date Admission Date: July 12, 2021 Subjective 30 yo M presented with sepsis after a dogbite to the forearm. Seen in the ER on Monday and he was started on Augmentin, returning this admission after approximately 3 doses. Doing well on Zosyn and Dapto Afebrile overnight, tachycardia resolved Sitting up in bed in no acute distress No fevers, chills, chest pain, shortness of breath, pain improved, erythema receding Followed by orthopedics wound culture obtained Review of Systems Review of Systems: All systems reviewed & are unremarkable except as noted in Subjective Physical Exam Physical Exam: CONSTITUTIONAL: obese young M , in NAD EYES: normal conjunctivae, no scleral icterus, MMM ENT: external ear and nose normal, MMM NECK: trachea midline RESPIRATORY: clear to auscultation bilaterally, no crackles, rales or wheezes, normal respiratory effort CARDIOVASCULAR: RRR, S1 and 2 heard without murmurs, gallops GASTROINTESTINAL: soft, nontender, nondistended, no guarding. MUSCULOSKELETAL: strength 5/5 throughout, head is normocephalic and atraumatic SKIN: warm and dry, puncture wound in central belly flexor side distal arm with receding erythema and warmth (improved). No drainage or fluctuance. Normal ROM of wrist and elbow on right. NEUROLOGIC: No facial asymmetry, no dysarthria, moves extremities PSYCHIATRIC: alert and cooperative, oriented x3. Euthymic mood. Results & Data Results & Data ([facility]) Vital Signs (Past 12 Hours) Vital Signs Temp Pulse Resp BP Pulse Ox 07/13/21 23:00 37 C 84 18 144/85 H 96 Laboratory Results 07/14/21 07/14/21 Range/Units 07:15 07:15 WBC 10.30 (4.8-10.8) K/uL RBC 4.46 L (4.7-6.1) M/uL Hgb 14.3 (14.0-18.0) g/dL Hct 40.8 L (42-52) % MCV 91.5 (80-100) fL MCH 32.1 (25-34) pg MCHC 35.0 (32-36) g/dL RDW Std Deviation 40.7 (36.4-46.3) fL RDW Coeff of Eloisa 12.1 (11.5-14.5) % Plt Count 238 (130-400) K/uL MPV 10.6 H (7.4-10.4) fL Sodium 138 (136-145) mmol/L Potassium 3.8 (3.5-5.1) mmol/L Chloride 106 (98-107) mmol/L Carbon Dioxide 26 (21-32) mmol/L Anion Gap 6.0 (3-11) BUN 10 (7-18) mg/dl Creatinine 1.11 (0.6-1.4) mg/dl Est Cr Clr Drug Dosing 134.9 ml/min Est GFR ( Amer) 103.4 ml/min Est GFR (Non-Af Amer) 89.3 ml/min BUN/Creatinine Ratio 9.2 L (10-20) Glucose 106 H (70-99) mg/dl Calcium 9.3 (8.5-10.1) mg/dl Medications Administered Current Inpatient Medications Acetaminophen (Acetaminophen 325 Mg Tab) 650 mg PO Q4H PRN PRN Reason: Pain or Fever Stop: 08/11/21 03:06 Last Admin: 07/14/21 08:10 Dose: 650 mg Documented by: Bupropion HCl (Bupropion Xl 300 Mg Tabcr) 300 mg PO DAILY LALA Stop: 08/11/21 08:59 Last Admin: 07/14/21 08:05 Dose: 300 mg Documented by: Cetirizine HCl (Cetirizine Hcl 10 Mg Tablet) 5 mg PO QPM LALA Stop: 08/11/21 20:59 Last Admin: 07/13/21 20:45 Dose: 5 mg Documented by: Promethazine HCl 12.5 mg/ (Sodium Chloride) 50.5 mls @ 202 mls/hr IV Q6H PRN PRN Reason: Nausea And Vomiting Stop: 08/11/21 03:06 Lorazepam (Ativan) 0.5 mg in 1 mls @ 1 mls/min IV Q4H PRN PRN Reason: Anxiety/Agitation Stop: 08/11/21 03:06 Piperacillin Sod/Tazobactam (Sod 4.5 gm/ Dextrose) 120 mls @ 30 mls/hr IV Q8H LALA; Protocol Stop: 07/19/21 04:59 Last Infusion: 07/14/21 08:34 Dose: Infused Documented by: Daptomycin 400 mg/ Syringe 8 mls @ 4 mls/min IV DAILY LALA; Protocol Stop: 07/19/21 14:29 Last Admin: 07/14/21 09:15 Dose: 4 mls/min Documented by: Ketorolac Tromethamine (Ketorolac Tromethamine 15 Mg/Ml Vial) 15 mg IV Q6H PRN PRN Reason: pain/fever Stop: 07/17/21 11:59 Last Admin: 07/14/21 07:27 Dose: 15 mg Documented by: Miscellaneous Information (Piperacill/Tazobac Consult Active) 1 ea N/A UD PRN PRN Reason: Consult Stop: 08/10/21 22:23 Miscellaneous Information (Daptomycin Consult Active) 1 ea N/A UD PRN PRN Reason: Consult Stop: 08/11/21 13:56 Morphine Sulfate (Morphine Sulfate 4 Mg/Ml 1 Ml Carp\Vial) 4 mg IV Q4H PRN PRN Reason: Pain Stop: 07/26/21 03:06 Tramadol HCl (Tramadol Hcl 50 Mg Tablet) 25 - 50 mg PO Q4H PRN PRN Reason: Pain Stop: 08/11/21 03:06 Last Admin: 07/14/21 04:39 Dose: 25 mg Documented by: (1) Infected dog bite of forearm Encounter type: initial encounter Laterality: right Qualified Code(s): S51.851A - Open bite of right forearm, initial encounter; L08.9 - Local infection of the skin and subcutaneous tissue, unspecified; W54.0XXA - Bitten by dog, initial encounter
[2021-07-14] MEDS: buPROPion XL 300 MG TABCR PO SCH (08:05)
[2021-07-14 08:08] LABS: BUN Creatinine Ratio 9.2 (10-20); Calcium 9.3 mg/dl (8.5-10.1); Creatinine Clr Calc Pharmacy 134.9 ml/min; Est GFR (African American) 103.4 ml/min; Est GFR (Non-African American) 89.3 ml/min; Potassium 3.8 mmol/L (3.5-5.1)
[2021-07-14] MEDS: ACETAMINOPHEN 325 MG TAB PO PRN ×3 (08:10→16:01)
--- NOTE | 2021-07-14 08:49 | Orthopedic Progress Note ---
Date of Service July 14, 2021 Assessment & Plan (1) Infected dog bite of forearm: Plan: Slow resolution of his cellulitis. His WBC count is heading in the right direction and is normal today. Patient was seen by Dr. Lopez yesterday with no plans for surgery and to watch it for now. I will have Dr. Cardenas see the patient later today to review his areas of induration. Patient can continue with diet as tolerated. Continue current IV antibiotics. Preliminary culture from a wound swab done around the time of admission is growing gram-negative bacilli. Continue IV antibiotics. Admission and Anticipated Discharge Date Admission Date: July 12, 2021 Subjective Patient sitting up in bed awake and alert. No worsening changes with the right upper extremity. Patient mentioned that he had some soreness in the back of the leg just above the ankle of which he felt he might of bumped it. He also questioned the possibility of blood clot. No other complaints or concerns at this time Physical Exam Physical Exam: Continues with the erythema on the forearm however it looks much less in the area of the wrist and seems to be receding. The area around the bite wound and also just medial to that feels more indurated to me today. No obvious fluctuance. He has one area medially that he points out that is a bit more tender than the rest of the forearm. He continues to have good wrist range of motion without discomfort. Good range of motion of his fingers without discomfort as well. No pain in the elbow with good range of motion. Patient had asked about pain in the back of his leg above the ankle. No obvious bruising. No point tenderness on palpation. No ankle edema. Homans exam is negative. Results & Data ([facility]) Vital Signs (Past 12 Hours) Vital Signs Temp Pulse Resp BP Pulse Ox 07/13/21 23:00 37 C 84 18 144/85 H 96 Laboratory Results Laboratory Results WBC 10.30 K/uL (4.8-10.8) 07/14/21 07:15 RBC 4.46 M/uL (4.7-6.1) L 07/14/21 07:15 Hgb 14.3 g/dL (14.0-18.0) 07/14/21 07:15 Hct 40.8 % (42-52) L 07/14/21 07:15 MCV 91.5 fL (80-100) 07/14/21 07:15 MCH 32.1 pg (25-34) 07/14/21 07:15 MCHC 35.0 g/dL (32-36) 07/14/21 07:15 RDW Std Deviation 40.7 fL (36.4-46.3) 07/14/21 07:15 RDW Coeff of Eloisa 12.1 % (11.5-14.5) 07/14/21 07:15 Plt Count 238 K/uL (130-400) 07/14/21 07:15 MPV 10.6 fL (7.4-10.4) H 07/14/21 07:15 Immature Gran % (Auto) 0.5 % 07/13/21 07:52 Neut % (Auto) 74.7 % 07/13/21 07:52 Lymph % (Auto) 15.0 % 07/13/21 07:52 Towner % (Auto) 8.8 % 07/13/21 07:52 Eos % (Auto) 0.9 % 07/13/21 07:52 Baso % (Auto) 0.1 % 07/13/21 07:52 Neut # (Auto) 10.20 K/uL (1.4-6.5) H 07/13/21 07:52 Lymph # (Auto) 2.06 K/uL (1.2-3.4) 07/13/21 07:52 Towner # (Auto) 1.21 K/uL (0.11-0.59) H 07/13/21 07:52 Eos # (Auto) 0.13 K/uL (0-0.5) 07/13/21 07:52 Baso # (Auto) 0.02 K/uL (0-0.2) 07/13/21 07:52 Immature Gran # (Auto) 0.07 K/uL (0.00-0.02) H 07/13/21 07:52 PT 9.3 Seconds (9.0-12.0) 07/11/21 22:30 INR 0.9 (0.9-1.1) 07/11/21 22:30 APTT 24.7 Seconds (21.0-31.0) 07/11/21 22:30 PTT Ratio 0.9 07/11/21 22:30 Sodium 138 mmol/L (136-145) 07/14/21 07:15 Potassium 3.8 mmol/L (3.5-5.1) 07/14/21 07:15 Chloride 106 mmol/L (98-107) 07/14/21 07:15 Carbon Dioxide 26 mmol/L (21-32) 07/14/21 07:15 Anion Gap 6.0 (3-11) 07/14/21 07:15 BUN 10 mg/dl (7-18) 07/14/21 07:15 Creatinine 1.11 mg/dl (0.6-1.4) 07/14/21 07:15 Est Cr Clr Drug Dosing 134.9 ml/min 07/14/21 07:15 Est GFR ( Amer) 103.4 ml/min 07/14/21 07:15 Est GFR (Non-Af Amer) 89.3 ml/min 07/14/21 07:15 BUN/Creatinine Ratio 9.2 (10-20) L 07/14/21 07:15 Glucose 106 mg/dl (70-99) H 07/14/21 07:15 Lactate 1.3 mmol/L (0.4-2.0) 07/11/21 22:30 Calcium 9.3 mg/dl (8.5-10.1) 07/14/21 07:15 Magnesium 2.3 mg/dl (1.8-2.4) 07/11/21 22:30 Total Bilirubin 1.1 mg/dl (0.2-1) H 07/11/21 22:30 AST 28 U/L (15-37) 07/11/21 22:30 ALT 69 U/L (12-78) 07/11/21 22:30 Alkaline Phosphatase 80 U/L (45-117) 07/11/21 22:30 Total Protein 8.2 gm/dl (6.4-8.2) 07/11/21 22:30 Albumin 4.0 gm/dl (3.4-5.0) 07/11/21 22:30 Globulin 4.2 gm/dl (2.5-4.0) H 07/11/21 22:30 Albumin/Globulin Ratio 1.0 (0.9-2) 07/11/21 22:30 TSH 2.110 uIu/ml (0.300-4.500) 07/11/21 22:30 COVID-19 Eval Order Covid19 at [facility] 07/11/21 22:42 SARS-CoV-2 (PCR) NEGATIVE (Negative) 07/11/21 22:42 (1) Infected dog bite of forearm Encounter type: initial encounter Laterality: right Qualified Code(s): S51.851A - Open bite of right forearm, initial encounter; L08.9 - Local i nfection of the skin and subcutaneous tissue, unspecified; W54.0XXA - Bitten by dog, initial encounter
[2021-07-14] MEDS: DAPTOmycin 400 MG in SYRINGE 0 ML IV SCH (09:15)
[2021-07-14] MEDS: CETIRIZINE HCL 10 MG TABLET PO SCH (20:52)
[2021-07-15] MEDS: PIPERACILLIN/TAZOBACTAM 4.5 GM in DEXTROSE 5% 100 ML IV SCH ×3 (05:32→21:31)
[2021-07-15 06:54] LABS: Hematocrit (blood only) 39.5 % (42-52); Hemoglobin 14.1 g/dL (14.0-18.0); Mean Corpuscular Hemoglobin 32.2 pg (25-34); Mean Corpuscular Hgb Conc 35.7 g/dL (32-36); Mean Corpuscular Volume 90.2 fL (80-100); Mean Platelet Volume 10.4 fL (7.4-10.4); Platelet Count 238 K/uL (130-400); RDW Standard Deviation 38.4 fL (36.4-46.3); Red Blood Count 4.38 M/uL (4.7-6.1); White Blood Count 8.49 K/uL (4.8-10.8)
[2021-07-15 07:18] LABS: BUN Creatinine Ratio 11.7 (10-20); Creatinine Clr Calc Pharmacy 137.4 ml/min; Est GFR (African American) 105.7 ml/min; Est GFR (Non-African American) 91.2 ml/min; Magnesium 2.3 mg/dl (1.8-2.4); Phosphorus 4.3 mg/dl (2.5-4.9); Potassium 3.8 mmol/L (3.5-5.1)
[2021-07-15] MEDS: DAPTOmycin 400 MG in SYRINGE 0 ML IV SCH (07:40)
[2021-07-15] MEDS: buPROPion XL 300 MG TABCR PO SCH (07:40)
[2021-07-15] MEDS: KETOROLAC TROMETHAMINE 15 MG/ML VIAL IV PRN ×2 (07:46→16:41)
--- NOTE | 2021-07-15 08:37 | Hospitalist Progress Note ---
Date of Service July 15, 2021 Assessment & Plan (1) Sepsis: Plan: Doing well on Zosyn and Dapto Still has extensive erythema and warmth but this and swelling has improved Afebrile overnight with improvement in pain Wound culture obtained (07/11) - gram-negative bacilli White blood cell count decreased to 8.5 K (07/15)- normalized Orthopedics consulted, no surgical intervention at this time, however continue to follow closely ID consulted- cont. IV antibiotics for next several days - at least 07/16-, re- assess, poss. surg. exploration if needed given gas on CT when DC on PO - would increase Augmentin to TID dose d/t BMI (2) Cellulitis of right forearm: Plan: plan as above. (3) Infected dog bite of forearm: Plan: plan as above. Low risk rabies-Rig not indicated. Tetanus UTD. conservative wound care. (4) Depression: Plan: cont Bupropion per home regimen. (5) Obesity: Plan: Lifestyle modifications recommended (6) DVT prophylaxis: Plan: SCDs/ambulation/Lovenox Full Code Dispo- plan to DC home in next 2 days. Admission and Anticipated Discharge Date Admission Date: July 12, 2021 Subjective 30 yo M presented with sepsis after a dogbite to the forearm. Seen in the ER on Monday and he was started on Augmentin, returning this admission after approximately 3 doses. Doing well on Zosyn and Dapto Afebrile overnight, tachycardia resolved Sitting up in bed in no acute distress No fevers, chills, chest pain, shortness of breath, pain improved, erythema receding Followed by orthopedics wound culture obtained ID consulted - cont. IV Abx for next several days Review of Systems Review of Systems: All systems reviewed & are unremarkable except as noted in Subjective Physical Exam Physical Exam: CONSTITUTIONAL: obese young M , in NAD EYES: normal conjunctivae, no scleral icterus, MMM ENT: external ear and nose normal, MMM NECK: trachea midline RESPIRATORY: clear to auscultation bilaterally, no crackles, rales or wheezes, normal respiratory effort CARDIOVASCULAR: RRR, S1 and 2 heard without murmurs, gallops GASTROINTESTINAL: soft, nontender, nondistended, no guarding. MUSCULOSKELETAL: strength 5/5 throughout, head is normocephalic and atraumatic SKIN: warm and dry, puncture wound in central belly flexor side distal arm with receding erythema and warmth (improved from initial markings however lymphangitis now proximally noted). No drainage. Normal ROM of wrist and elbow on right. NEUROLOGIC: No facial asymmetry, no dysarthria, moves extremities PSYCHIATRIC: alert and cooperative, oriented x3. Euthymic mood. Results & Data Results & Data ([facility]) Vital Signs (Past 12 Hours) Vital Signs Temp Pulse Resp BP Pulse Ox 07/15/21 07:10 36.9 C 82 18 131/76 97 07/14/21 22:20 36.7 C 77 20 151/99 H 97 Laboratory Results 07/15/21 07/15/21 Range/Units 06:34 06:34 WBC 8.49 (4.8-10.8) K/uL RBC 4.38 L (4.7-6.1) M/uL Hgb 14.1 (14.0-18.0) g/dL Hct 39.5 L (42-52) % MCV 90.2 (80-100) fL MCH 32.2 (25-34) pg MCHC 35.7 (32-36) g/dL RDW Std Deviation 38.4 (36.4-46.3) fL RDW Coeff of Eloisa 12.0 (11.5-14.5) % Plt Count 238 (130-400) K/uL MPV 10.4 (7.4-10.4) fL Sodium 137 (136-145) mmol/L Potassium 3.8 (3.5-5.1) mmol/L Chloride 106 (98-107) mmol/L Carbon Dioxide 27 (21-32) mmol/L Anion Gap 4.0 (3-11) BUN 13 (7-18) mg/dl Creatinine 1.09 (0.6-1.4) mg/dl Est Cr Clr Drug Dosing 137.4 ml/min Est GFR ( Amer) 105.7 ml/min Est GFR (Non-Af Amer) 91.2 ml/min BUN/Creatinine Ratio 11.7 (10-20) Glucose 98 (70-99) mg/dl Calcium 9.0 (8.5-10.1) mg/dl Phosphorus 4.3 (2.5-4.9) mg/dl Magnesium 2.3 (1.8-2.4) mg/dl Medications Administered Current Inpatient Medications Acetaminophen (Acetaminophen 325 Mg Tab) 650 mg PO Q4H PRN PRN Reason: Pain or Fever Stop: 08/11/21 03:06 Last Admin: 07/14/21 16:01 Dose: 650 mg Documented by: Bupropion HCl (Bupropion Xl 300 Mg Tabcr) 300 mg PO DAILY LALA Stop: 08/11/21 08:59 Last Admin: 07/15/21 07:40 Dose: 300 mg Documented by: Cetirizine HCl (Cetirizine Hcl 10 Mg Tablet) 5 mg PO QPM LALA Stop: 08/11/21 20:59 Last Admin: 07/14/21 20:52 Dose: 5 mg Documented by: Promethazine HCl 12.5 mg/ (Sodium Chloride) 50.5 mls @ 202 mls/hr IV Q6H PRN PRN Reason: Nausea And Vomiting Stop: 08/11/21 03:06 Lorazepam (Ativan) 0.5 mg in 1 mls @ 1 mls/min IV Q4H PRN PRN Reason: Anxiety/Agitation Stop: 08/11/21 03:06 Piperacillin Sod/Tazobactam (Sod 4.5 gm/ Dextrose) 120 mls @ 30 mls/hr IV Q8H LALA; Protocol Stop: 07/19/21 04:59 Last Admin: 07/15/21 05:32 Dose: 30 mls/hr Documented by: Daptomycin 400 mg/ Syringe 8 mls @ 4 mls/min IV DAILY LALA; Protocol Stop: 07/19/21 14:29 Last Admin: 07/15/21 07:40 Dose: 4 mls/min Documented by: Ketorolac Tromethamine (Ketorolac Tromethamine 15 Mg/Ml Vial) 15 mg IV Q6H PRN PRN Reason: pain/fever Stop: 07/17/21 11:59 Last Admin: 07/15/21 07:46 Dose: 15 mg Documented by: Miscellaneous Information (Piperacill/Tazobac Consult Active) 1 ea N/A UD PRN PRN Reason: Consult Stop: 08/10/21 22:23 Miscellaneous Information (Daptomycin Consult Active) 1 ea N/A UD PRN PRN Reason: Consult Stop: 08/11/21 13:56 Morphine Sulfate (Morphine Sulfate 4 Mg/Ml 1 Ml Carp\Vial) 4 mg IV Q4H PRN PRN Reason: Pain Stop: 07/26/21 03:06 Tramadol HCl (Tramadol Hcl 50 Mg Tablet) 25 - 50 mg PO Q4H PRN PRN Reason: Pain Stop: 08/11/21 03:06 Last Admin: 07/14/21 04:39 Dose: 25 mg Documented by: (1) Infected dog bite of forearm Encounter type: initial encounter Laterality: right Qualified Code(s): S51.851A - Open bite of right forearm, initial encounter; L08.9 - Local infection of the skin and subcutaneous tissue, unspecified; W54.0XXA - Bitten by dog, initial encounter
--- NOTE | 2021-07-15 11:14 | Orthopedic Progress Note ---
Date of Service July 15, 2021 Assessment & Plan (1) Infected dog bite of forearm: Plan: He clearly has fairly extensive cellulitis on the right volar forearm; this is improving on his IV Zosyn and daptomycin. However, it is possible that he has some small focal abscesses, especially since I can express a tiny bit of purulent drainage from the 2 wounds on the volar forearm, and there is some induration and more significant tenderness around the more ulnar wound. He is now 5 days into his antibiotic treatment. With his exam today, I would have offered him surgical debridement today, but unfortunately he recently ate a full breakfast. He again expressed his desire to avoid surgery if at all possible. His overall clinical picture is clearly improving. I advised him that if he has some small abscesses, these may be cleared with the antibiotics, but in general abscesses are best treated with surgical debridement. We mutually decided to continue with IV antibiotics today and tomorrow, with reassessment tomorrow. If it has not significantly improved by tomorrow, we will plan for surgical debridement Monday morning. Admission and Anticipated Discharge Date Admission Date: July 12, 2021 Subjective Patient is overall doing well, and resting comfortably with no distress. He is now 5 days out from his dog bite wound to the right forearm. He reports that overall he continues to improve with the IV antibiotics. He notes much less erythema, swelling, and tenderness over his volar forearm. However, he has noted some new mild erythema extending up along the medial elbow. He says he was told by the infectious disease physicians that this can happen due to elevating his arm and the erythema extending due to gravity. He expressed a desire to avoid surgery if at all possible. Physical Exam Physical Exam: Examination of the right forearm reveals 2 puncture wounds along the volar aspect of the forearm. No obvious active drainage from the wound, but there is some serosanguineous drainage on the dressing that was placed yesterday. However I was able to express 1 small dot of purulent fluid from each 1 of these puncture wounds. There is a much smaller and more superficial appearing wound on the ulnar side of the volar forearm. There is some surrounding induration here. He feels like this area is the most tender spot on his forearm. No active or expressible drainage from this wound. Overall mild erythema in the entire volar forearm; he reports that this has significantly improved over the past few days. Very mild erythema extending up the medial elbow. Results & Data ([facility]) Vital Signs (Past 12 Hours) Vital Signs Temp Pulse Resp BP Pulse Ox 07/15/21 07:10 36.9 C 82 18 131/76 97 Laboratory Results WBC - 13.7-->10.3-->8.5 Diagnostic Findings No obvious abscess on previous forearm CT scan. (1) Infected dog bite of forearm Encounter type: initial encounter Laterality: right Qualified Code(s): S51.851A - Open bite of right forearm, initial encounter; L08.9 - Local infection of the skin and subcutaneous tissue, unspecified; W54.0XXA - Bitten by dog, initial encounter
[2021-07-15] MEDS: FAMOTIDINE 20 MG TAB PO SCH (17:33)
[2021-07-15] MEDS: CETIRIZINE HCL 10 MG TABLET PO SCH (21:31)
[2021-07-16] MEDS: PIPERACILLIN/TAZOBACTAM 4.5 GM in DEXTROSE 5% 100 ML IV SCH ×3 (06:04→20:40)
[2021-07-16 07:32] LABS: Hematocrit (blood only) 41.9 % (42-52); Mean Corpuscular Hemoglobin 32.1 pg (25-34); Mean Corpuscular Hgb Conc 35.8 g/dL (32-36); Mean Corpuscular Volume 89.7 fL (80-100); Mean Platelet Volume 10.7 fL (7.4-10.4); Platelet Count 249 K/uL (130-400); RDW Standard Deviation 38.4 fL (36.4-46.3); Red Blood Count 4.67 M/uL (4.7-6.1); White Blood Count 8.49 K/uL (4.8-10.8)
[2021-07-16] MEDS: FAMOTIDINE 20 MG TAB PO SCH (07:41)
[2021-07-16] MEDS: KETOROLAC TROMETHAMINE 15 MG/ML VIAL IV PRN ×2 (07:41→20:46)
[2021-07-16] MEDS: buPROPion XL 300 MG TABCR PO SCH (07:41)
[2021-07-16] MEDS: DAPTOmycin 600 MG in SYRINGE 0 ML IV SCH (07:42)
[2021-07-16 08:01] LABS: BUN Creatinine Ratio 11.6 (10-20); Calcium 9.2 mg/dl (8.5-10.1); Creatinine Clr Calc Pharmacy 124.6 ml/min; Est GFR (African American) 94.1 ml/min; Est GFR (Non-African American) 81.2 ml/min; Potassium 4.1 mmol/L (3.5-5.1)
[2021-07-16] MEDS ORDERED: SODIUM CHLORIDE 0.9% 1000ML 500 ML IV ONE (08:26)
--- NOTE | 2021-07-16 08:28 | Hospitalist Progress Note ---
Date of Service July 16, 2021 Assessment & Plan (1) Sepsis: Plan: Doing well on Zosyn and Dapto Still has extensive erythema and warmth but this and swelling has improved Afebrile overnight with improvement in pain Wound culture obtained (07/11) - gram-negative bacilli Wound culture 07/12 - probable Eikenella corrodens White blood cell count decreased to 8.5 K (07/15 and 07/16)- normalized Orthopedics consulted - MRI of forearm today (07/16), possible I&D tomorrow (07/17) ID consulted - cont. IV antibiotics for next several days, re-assess, poss. surg. exploration if needed given gas on CT when DC on PO - would increase Augmentin to TID dose d/t BMI (2) Cellulitis of right forearm: Plan: plan as above. (3) Infected dog bite of forearm: Plan: plan as above. Low risk rabies-Rig not indicated. Tetanus UTD. conservative wound care. (4) Depression: Plan: cont Bupropion per home regimen. (5) Obesity: Plan: Lifestyle modifications recommended (6) DVT prophylaxis: Plan: SCDs/ambulation/Lovenox Full Code Dispo- plan to DC home in next 2 days. Admission and Anticipated Discharge Date Admission Date: July 12, 2021 Subjective 30 yo M presented with sepsis after a dogbite to the forearm. Seen in the ER on Monday and he was started on Augmentin, returning this admission after approximately 3 doses. Doing well on Zosyn and Dapto Sitting up in bed in no acute distress No fevers, chills, chest pain, shortness of breath, pain improved Some induration and serous drainage noted erythema improved around wrist area however now more pronounced proximally Followed by orthopedics - poss. I&D tmrw MRI today wound culture obtained- G negat.bacilli, likely Eikenella ID consulted - cont. IV Abx for next several days Review of Systems Review of Systems: All systems reviewed & are unremarkable except as noted in Subjective Physical Exam Physical Exam: CONSTITUTIONAL: obese young M , in NAD EYES: normal conjunctivae, no scleral icterus, MMM ENT: external ear and nose normal, MMM NECK: trachea midline RESPIRATORY: clear to auscultation bilaterally, no crackles, rales or wheezes, normal respiratory effort CARDIOVASCULAR: RRR, S1 and 2 heard without murmurs, gallops GASTROINTESTINAL: soft, nontender, nondistended, no guarding. MUSCULOSKELETAL: strength 5/5 throughout, head is normocephalic and atraumatic SKIN: warm and dry, puncture wound in central belly flexor side distal arm with receding erythema and warmth (improved from initial markings however lymphangitis now proximally noted), also induration at bite noted.+ serous drainage. Normal ROM of wrist and elbow on right. NEUROLOGIC: No facial asymmetry, no dysarthria, moves extremities PSYCHIATRIC: alert and cooperative, oriented x3. Euthymic mood. Results & Data Results & Data ([facility]) Vital Signs (Past 12 Hours) Vital Signs Temp Pulse Resp BP Pulse Ox 07/16/21 07:30 36.7 C 86 18 126/84 97 07/15/21 23:02 37.0 C 83 16 132/87 97 Laboratory Results 07/16/21 07/16/21 Range/Units 06:48 06:48 WBC 8.49 (4.8-10.8) K/uL RBC 4.67 L (4.7-6.1) M/uL Hgb 15.0 (14.0-18.0) g/dL Hct 41.9 L (42-52) % MCV 89.7 (80-100) fL MCH 32.1 (25-34) pg MCHC 35.8 (32-36) g/dL RDW Std Deviation 38.4 (36.4-46.3) fL RDW Coeff of Eloisa 12.0 (11.5-14.5) % Plt Count 249 (130-400) K/uL MPV 10.7 H (7.4-10.4) fL Sodium 139 (136-145) mmol/L Potassium 4.1 (3.5-5.1) mmol/L Chloride 108 H (98-107) mmol/L Carbon Dioxide 28 (21-32) mmol/L Anion Gap 3.0 (3-11) BUN 14 (7-18) mg/dl Creatinine 1.20 (0.6-1.4) mg/dl Est Cr Clr Drug Dosing 124.6 ml/min Est GFR ( Amer) 94.1 ml/min Est GFR (Non-Af Amer) 81.2 ml/min BUN/Creatinine Ratio 11.6 (10-20) Glucose 95 (70-99) mg/dl Calcium 9.2 (8.5-10.1) mg/dl Medications Administered Current Inpatient Medications Acetaminophen (Acetaminophen 325 Mg Tab) 650 mg PO Q4H PRN PRN Reason: Pain or Fever Stop: 08/11/21 03:06 Last Admin: 07/14/21 16:01 Dose: 650 mg Documented by: Bupropion HCl (Bupropion Xl 300 Mg Tabcr) 300 mg PO DAILY [facility] Stop: 08/11/21 08:59 Last Admin: 07/16/21 07:41 Dose: 300 mg Documented by: Cetirizine HCl (Cetirizine Hcl 10 Mg Tablet) 5 mg PO QPM [facility] Stop: 08/11/21 20:59 Last Admin: 07/15/21 21:31 Dose: Not Given Documented by: Famotidine (Famotidine 20 Mg Tab) 20 mg PO QAM [facility] Stop: 08/14/21 17:14 Last Admin: 07/16/21 07:41 Dose: 20 mg Documented by: Promethazine HCl 12.5 mg/ (Sodium Chloride) 50.5 mls @ 202 mls/hr IV Q6H PRN PRN Reason: Nausea And Vomiting Stop: 08/11/21 03:06 Lorazepam (Ativan) 0.5 mg in 1 mls @ 1 mls/min IV Q4H PRN PRN Reason: Anxiety/Agitation Stop: 08/11/21 03:06 Piperacillin Sod/Tazobactam (Sod 4.5 gm/ Dextrose) 120 mls @ 30 mls/hr IV Q8H [facility]; Protocol Stop: 07/19/21 04:59 Last Admin: 07/16/21 06:04 Dose: 30 mls/hr Documented by: Daptomycin 600 mg/ Syringe 12 mls @ 4 mls/min IV DAILY [facility]; Protocol Stop: 07/18/21 23:59 Last Admin: 07/16/21 07:42 Dose: 4 mls/min Documented by: Sodium Chloride (Nss 1000ml) 500 mls @ 999 mls/hr IV .Q31M ONE Stop: 07/16/21 08:56 Ketorolac Tromethamine (Ketorolac Tromethamine 15 Mg/Ml Vial) 15 mg IV Q6H PRN PRN Reason: pain/fever Stop: 07/17/21 11:59 Last Admin: 07/16/21 07:41 Dose: 15 mg Documented by: Miscellaneous Information (Piperacill/Tazobac Consult Active) 1 ea N/A UD PRN PRN Reason: Consult Stop: 08/10/21 22:23 Miscellaneous Information (Daptomycin Consult Active) 1 ea N/A UD PRN PRN Reason: Consult Stop: 08/11/21 13:56 Morphine Sulfate (Morphine Sulfate 4 Mg/Ml 1 Ml Carp\Vial) 4 mg IV Q4H PRN PRN Reason: Pain Stop: 07/26/21 03:06 Tramadol HCl (Tramadol Hcl 50 Mg Tablet) 25 - 50 mg PO Q4H PRN PRN Reason: Pain Stop: 08/11/21 03:06 Last Admin: 07/14/21 04:39 Dose: 25 mg Documented by: (1) Infected dog bite of forearm Encounter type: initial encounter Laterality: right Qualified Code(s): S51.851A - Open bite of right forearm, initial encounter; L08.9 - Local infection of the skin and subcutaneous tissue, unspecified; W54.0XXA - Bitten by dog, initial encounter
--- NOTE | 2021-07-16 09:46 | Orthopedic Progress Note ---
Date of Service July 16, 2021 Assessment & Plan (1) Infected dog bite of forearm: Plan: Continue IV antibiotics. Continue elevation of the RUE MRI with and without contrast ordered. Rule out abscess collection. We have tentatively added him onto the operating room schedule tomorrow morning for possible I&D. N.p.o. after midnight. Gram-negative bacilli noted on culture on admission. Eikenella species noted from superficial wound culture done several days ago. Admission and Anticipated Discharge Date Admission Date: July 12, 2021 Subjective Patient seen this morning. Patient sitting up in bed awake and alert. No new complaints. Physical Exam Physical Exam: Overall improvement of his erythema at the elbow and over the dorsum of the forearm. Continues with moderate erythema on the volar aspect of the forearm. It appears to be coalescing down to the bite wound and to a small area of induration just under the bite wound. He continues to drain is serous drainage from the bite wounds. Induration around the bite wounds. Also small area of induration just below the bite wound that is tender on palpation. No changes in neurovascular status. Results & Data ([facility]) Vital Signs (Past 12 Hours) Vital Signs Temp Pulse Resp BP Pulse Ox 07/16/21 07:30 36.7 C 86 18 126/84 97 07/15/21 23:02 37.0 C 83 16 132/87 97 (1) Infected dog bite of forearm Encounter type: initial encounter Laterality: right Qualified Code(s): S51.851A - Open bite of right forearm, initial encounter; L08.9 - Local infection of the skin and subcutaneous tissue, unspecified; W54.0XXA - Bitten by dog, initial encounter
[2021-07-16] MEDS ORDERED: GADOBUTROL 65ML VIAL IV ONE (10:59)
[2021-07-16] MEDS: traMADol HCL 50 MG TABLET PO PRN ×2 (13:23→19:30)
--- NOTE | 2021-07-16 15:56 | Magnetic Resonance Report ---
MR forearm RT wo/w con HISTORY: Dog bite to right forearm. Redness and swelling. r/o abscess TECHNIQUE: Multiplanar multisequence MRI of the right forearm was performed both before and after the intravenous administration of 13 cc of Gadavist contrast. COMPARISON STUDY: Right forearm CT 07/12/2021. FINDINGS: There is a skin marker overlying the mid forearm. Deep to the skin marker there is subcutan eous edema and enhancement primarily along the volar and ulnar sides of the forearm with associated m ild skin thickening. This is consistent with a cellulitis. No loculated fluid collections to suggest an abscess. The deep soft tissues and muscle compartments are intact. The radius and ulna demonstrate a normal signal intensity. No fracture or dislocation within the forearm. IMPRESSION: 1. Subcutaneous edema and enhancement within the forearm consistent with a cellulitis. No loculated f luid collections to suggest an abscess. 2. No fracture or dislocation. ACT 112: Negative or not required by law. Electronically signed by: Otto Manning M.D. 07/16/2021 3:54 PM
[2021-07-16] MEDS: CETIRIZINE HCL 10 MG TABLET PO SCH (20:40)
[2021-07-17] MEDS: traMADol HCL 50 MG TABLET PO PRN ×2 (00:48→19:42)
[2021-07-17] MEDS: PIPERACILLIN/TAZOBACTAM 4.5 GM in DEXTROSE 5% 100 ML IV SCH ×3 (05:36→21:14)
--- NOTE | 2021-07-17 07:22 | Anesthesiology Consultation ---
Date of Service July 17, 2021 Assessment & Plan (1) Encounter for pre-operative examination: Chart Review Chart Review: Acceptable Risk for Surgery and Patient NOT seen in Pre Admission Testing Consults Requested none History Surgery Operation Date: 07/17/21 09:10 Proposed Procedures p Right Forearm Incision and Drainage - Kelechi Ortiz M.D. Height/Weight Height: 5 ft 10 in Weight: 133 kg Allergies Allergy/AdvReac Type Severity Reaction Status Date / Time shellfish derived Allergy Intermediate Hives Verified 07/12/21 09:14 Sulfa (Sulfonamide Allergy Unknown UNKNOWN--HAPPENED Unverified 07/11/21 22:30 Antibiotics) A CHILD Medications Home Medications Medication Instructions Recorded Confirmed Last Taken amoxicillin 875 mg-potassium 1 tab PO BID #8 tab 07/10/21 07/11/21 07/11/21 clavulanate 125 mg tablet (Augmentin) bupropion HCl 300 mg 24 hr tablet, 300 mg PO DAILY 07/10/21 07/11/21 07/11/21 extended release levocetirizine 5 mg tablet 5 mg PO QPM 07/10/21 07/11/21 07/11/21 Active Medications Generic Name Dose Route Start Last Admin Trade Name Freq PRN Reason Stop Dose Admin Acetaminophen 650 mg 07/12/21 03:07 07/14/21 16:01 Acetaminophen 325 Mg Tab PO 08/11/21 03:06 650 mg Q4H PRN Administration Pain or Fever Bupropion HCl 300 mg 07/12/21 09:00 07/17/21 08:00 Bupropion Xl 300 Mg Tabcr PO 08/11/21 08:59 300 mg DAILY [facility] Administration Cetirizine HCl 5 mg 07/12/21 21:00 07/16/21 20:40 Cetirizine Hcl 10 Mg Tablet PO 08/11/21 20:59 5 mg QPM [facility] Administration Famotidine 20 mg 07/15/21 17:15 07/17/21 08:00 Famotidine 20 Mg Tab PO 08/14/21 17:14 20 mg QAM [facility] Administration Piperacillin Sod/Tazobactam 120 mls @ 30 mls/hr 07/12/21 05:00 07/17/21 05:36 Sod 4.5 gm/ Dextrose IV 07/19/21 04:59 30 mls/hr Q8H [facility] Administration Protocol Daptomycin 600 mg/ Syringe 12 mls @ 4 mls/min 07/16/21 09:00 07/17/21 08:00 IV 07/18/21 23:59 4 mls/min DAILY [facility] Administration Protocol Ketorolac Tromethamine 15 mg 07/12/21 11:49 07/16/21 20:46 Ketorolac Tromethamine 15 Mg/Ml Vial IV 07/17/21 11:59 15 mg Q6H PRN Administration pain/fever Tramadol HCl 25 - 50 mg 07/12/21 03:07 07/17/21 00:48 Tramadol Hcl 50 Mg Tablet PO 08/11/21 03:06 50 mg Q4H PRN Administration Pain NPO Date Last Intake of Fluids: 07/13/21 Time Last Intake of Fluids: 18:00 Date Last Intake of Solids: 07/14/21 Time Last Intake of Solids: 18:00 Past Medical History Medical History Depression Past Surgical History Surgical History No significant past surgical history Social History Smoking Status: Former smoker Do You Dip or Chew Tobacco: No Hx Alcohol Use: Yes Alcohol type: hard liquor Hx Substance Use: No substance use type: does not use Physical Exam Vital Signs Last Vital Signs Temp 36.4 C L 07/17/21 07:28 Pulse 87 07/17/21 07:28 Resp 16 07/17/21 07:28 BP 143/89 H 07/17/21 07:28 Pulse Ox 98 07/17/21 07:28 Testing Laboratory Results 07/17/21 08:43 07/17/21 08:43 PT 9.3 Seconds (9.0-12.0) 07/11/21 22:30 INR 0.9 (0.9-1.1) 07/11/21 22:30 APTT 24.7 Seconds (21.0-31.0) 07/11/21 22:30 07/11/21 22:30 Aerobic Blood Culture - Final Blood No growth in Aerobic bottle after 5 days. Anaerobic Blood Culture - Final No growth in Anaerobic bottle after 5 days. 07/11/21 22:30 Aerobic Blood Culture - Final Blood No growth in Aerobic bottle after 5 days. Anaerobic Blood Culture - Final No growth in Anaerobic bottle after 5 days. 07/12/21 17:00 Gram Stain - Final Arm,Right Wound Culture - Final Probable Eikenella corrodens 07/11/21 22:47 Gram Stain - Final Arm Deep Wound Culture - Final Gram negative bacilli Electrocardiogram Date: 07/11/21 Findings: + ST @ (130) Incomplete right bundle branch block Abnormal ECG When compared with ECG of 26-APR-2018 13:54, No significant change was found
--- NOTE | 2021-07-17 07:36 | Hospitalist Progress Note ---
Date of Service July 17, 2021 Assessment & Plan (1) Sepsis: Plan: Doing well on Zosyn and Dapto Dog bite at dorsum of forearm Erythema and warmth, swelling generally improved, benjamín. at wrist lymphangitis is now noted more proximally Induration and some drainage at dog bite noted as well Afebrile Wound culture obtained (07/11) - gram-negative bacilli Wound culture 07/12 - probable Eikenella corrodens White blood cell count normalized 8.5 K (07/15) Orthopedics consulted - MRI of forearm (07/16) - Subcutaneous edema and enhancement within the forearm consistent with a cellulitis. No loculated fluid collections to suggest an abscess. Plan for I&D today (07/17) ID consulted - cont. IV antibiotics for next several days, re-assess, poss. surg. exploration if needed given gas on CT when DC on PO - would increase Augmentin to TID dose d/t BMI (2) Cellulitis of right forearm: Plan: plan as above. (3) Infected dog bite of forearm: Plan: plan as above. Low risk rabies-Rig not indicated. Tetanus UTD. conservative wound care. (4) Depression: Plan: cont Bupropion per home regimen. (5) Obesity: Plan: Lifestyle modifications recommended (6) DVT prophylaxis: Plan: SCDs/ambulation/Lovenox Full Code Dispo- plan to DC home possibly in next 2-3 days. Admission and Anticipated Discharge Date Admission Date: July 12, 2021 Subjective 30 yo M presented with sepsis after a dogbite to the forearm. Seen in the ER on Monday and he was started on Augmentin, returning this admission after approximately 3 doses. Doing well on Zosyn and Dapto Sitting up in bed in no acute distress No fevers, chills, chest pain, shortness of breath, pain improved Some induration and serous drainage noted Erythema improved around wrist area however now more pronounced proximally Followed by orthopedics - plan for I&D today Wound culture obtained- G negat.bacilli, likely Eikenella ID consulted - cont. IV Abx for next several days Review of Systems Review of Systems: All systems reviewed & are unremarkable except as noted in Subjective Physical Exam Physical Exam: CONSTITUTIONAL: obese young M , in NAD EYES: normal conjunctivae, no scleral icterus, MMM ENT: external ear and nose normal, MMM NECK: trachea midline RESPIRATORY: clear to auscultation bilaterally, no crackles, rales or wheezes, normal respiratory effort CARDIOVASCULAR: RRR, S1 and 2 heard without murmurs, gallops GASTROINTESTINAL: soft, nontender, nondistended, no guarding. MUSCULOSKELETAL: strength 5/5 throughout, head is normocephalic and atraumatic SKIN: puncture wound in dorsum of forearm with receding erythema and warmth at wrist however lymphangitis now noted proximally, + induration at bite noted.+ serous drainage. Normal ROM of wrist and elbow on right. NEUROLOGIC: No facial asymmetry, no dysarthria, moves extremities PSYCHIATRIC: alert and cooperative, oriented x3. Euthymic mood. Results & Data Results & Data ([facility]) Vital Signs (Past 12 Hours) Vital Signs Temp Pulse Resp BP Pulse Ox 07/17/21 07:28 36.4 C L 87 16 143/89 H 98 07/16/21 23:13 36.7 C 77 16 143/92 H 98 Laboratory Results 07/17/21 07/17/21 07/17/21 Range/Units Unknown Unknown 08:43 WBC (4.8-10.8) K/uL RBC (4.7-6.1) M/uL Hgb (14.0-18.0) g/dL Hct (42-52) % MCV (80-100) fL MCH (25-34) pg MCHC (32-36) g/dL RDW Std Deviation (36.4-46.3) fL RDW Coeff of Eloisa (11.5-14.5) % Plt Count (130-400) K/uL MPV (7.4-10.4) fL Sodium Pending Potassium Pending Chloride Pending Carbon Dioxide Pending Anion Gap Pending BUN Pending Creatinine Pending Est Cr Clr Drug Dosing Pending Est GFR ( Amer) Pending Est GFR (Non-Af Amer) Pending BUN/Creatinine Ratio Pending Glucose Pending Calcium Pending Phosphorus Pending Magnesium Pending COVID-19 Eval Order Covid19 at [facility] SARS-CoV-2 (PCR) NEGATIVE (Negative) 07/17/21 Range/Units 08:43 WBC 8.94 (4.8-10.8) K/uL RBC 4.98 (4.7-6.1) M/uL Hgb 16.1 (14.0-18.0) g/dL Hct 44.7 (42-52) % MCV 89.8 (80-100) fL MCH 32.3 (25-34) pg MCHC 36.0 (32-36) g/dL RDW Std Deviation 38.5 (36.4-46.3) fL RDW Coeff of Eloisa 12.0 (11.5-14.5) % Plt Count 266 (130-400) K/uL MPV 10.1 (7.4-10.4) fL Sodium Potassium Chloride Carbon Dioxide Anion Gap BUN Creatinine Est Cr Clr Drug Dosing Est GFR ( Amer) Est GFR (Non-Af Amer) BUN/Creatinine Ratio Glucose Calcium Phosphorus Magnesium COVID-19 Eval Order SARS-CoV-2 (PCR) (Negative) Medications Administered Current Inpatient Medications Acetaminophen (Acetaminophen 325 Mg Tab) 650 mg PO Q4H PRN PRN Reason: Pain or Fever Stop: 08/11/21 03:06 Last Admin: 07/14/21 16:01 Dose: 650 mg Documented by: Bupropion HCl (Bupropion Xl 300 Mg Tabcr) 300 mg PO DAILY [facility] Stop: 08/11/21 08:59 Last Admin: 07/16/21 07:41 Dose: 300 mg Documented by: Cetirizine HCl (Cetirizine Hcl 10 Mg Tablet) 5 mg PO QPM [facility] Stop: 08/11/21 20:59 Last Admin: 07/16/21 20:40 Dose: 5 mg Documented by: Famotidine (Famotidine 20 Mg Tab) 20 mg PO QAM [facility] Stop: 08/14/21 17:14 Last Admin: 07/16/21 07:41 Dose: 20 mg Documented by: Promethazine HCl 12.5 mg/ (Sodium Chloride) 50.5 mls @ 202 mls/hr IV Q6H PRN PRN Reason: Nausea And Vomiting Stop: 08/11/21 03:06 Lorazepam (Ativan) 0.5 mg in 1 mls @ 1 mls/min IV Q4H PRN PRN Reason: Anxiety/Agitation Stop: 08/11/21 03:06 Piperacillin Sod/Tazobactam (Sod 4.5 gm/ Dextrose) 120 mls @ 30 mls/hr IV Q8H [facility]; Protocol Stop: 07/19/21 04:59 Last Admin: 07/17/21 05:36 Dose: 30 mls/hr Documented by: Daptomycin 600 mg/ Syringe 12 mls @ 4 mls/min IV DAILY [facility]; Protocol Stop: 07/18/21 23:59 Last Admin: 07/16/21 07:42 Dose: 4 mls/min Documented by: Ketorolac Tromethamine (Ketorolac Tromethamine 15 Mg/Ml Vial) 15 mg IV Q6H PRN PRN Reason: pain/fever Stop: 07/17/21 11:59 Last Admin: 07/16/21 20:46 Dose: 15 mg Documented by: Miscellaneous Information (Piperacill/Tazobac Consult Active) 1 ea N/A UD PRN PRN Reason: Consult Stop: 08/10/21 22:23 Miscellaneous Information (Daptomycin Consult Active) 1 ea N/A UD PRN PRN Reason: Consult Stop: 08/11/21 13:56 Morphine Sulfate (Morphine Sulfate 4 Mg/Ml 1 Ml Carp\Vial) 4 mg IV Q4H PRN PRN Reason: Pain Stop: 07/26/21 03:06 Tramadol HCl (Tramadol Hcl 50 Mg Tablet) 25 - 50 mg PO Q4H PRN PRN Reason: Pain Stop: 08/11/21 03:06 Last Admin: 07/17/21 00:48 Dose: 50 mg Documented by: (1) Infected dog bite of forearm Encounter type: initial encounter Laterality: right Qualified Code(s): S51.851A - Open bite of right forearm, initial encounter; L08.9 - Local infection of the skin and subcutaneous tissue, unspecified; W54.0XXA - Bitten by dog, initial encounter
[2021-07-17] MEDS: FAMOTIDINE 20 MG TAB PO SCH (08:00)
[2021-07-17] MEDS: buPROPion XL 300 MG TABCR PO SCH (08:00)
[2021-07-17] MEDS: DAPTOmycin 600 MG in SYRINGE 0 ML IV SCH (08:00)
[2021-07-17] MEDS ORDERED: DEXAMETHASONE SOD INJ 4 MG/ML VIAL ONE (08:45)
[2021-07-17] MEDS ORDERED: fentaNYL citrate 100 MCG/2 ML VIAL ONE ×2 (08:45→10:27)
[2021-07-17] MEDS ORDERED: LIDOCAINE 2% 2 ML VIAL/AMP(20MG/ML) INFIL ONE (08:45)
[2021-07-17] MEDS ORDERED: ONDANSETRON INJ 2 MG/ML 2 ML VIAL ONE (08:45)
[2021-07-17] MEDS ORDERED: PROPOFOL IV EMULSION 10 MG/ML 20 ML VIAL IV ONE ×2 (08:45→10:37)
[2021-07-17] MEDS ORDERED: MIDAZOLAM HCL 1 MG/ML 2ML VIAL ONE (08:45)
[2021-07-17 08:55] LABS: Hematocrit (blood only) 44.7 % (42-52); Hemoglobin 16.1 g/dL (14.0-18.0); Mean Corpuscular Hemoglobin 32.3 pg (25-34); Mean Corpuscular Volume 89.8 fL (80-100); Mean Platelet Volume 10.1 fL (7.4-10.4); Platelet Count 266 K/uL (130-400); RDW Standard Deviation 38.5 fL (36.4-46.3); Red Blood Count 4.98 M/uL (4.7-6.1); White Blood Count 8.94 K/uL (4.8-10.8)
--- NOTE | 2021-07-17 09:11 | History & Physical Bridge Note ---
Date of Service July 17, 2021 History & Physical Bridge Note I have examined the patient, reviewed the History & Physical and in the interval since the performance of the History & Physical I have noted the following changes of clinical significance: Patient has persistent infection in the volar aspect of the right forearm despite over a week of IV antibiotics. He still has slightly purulent drainage from 2 of the bite wounds. We extensively discussed further conservative treatment with continued IV antibiotics versus surgical intervention to debride any focal collections of infection or abscesses. I advised him that I think that surgical debridement will give a more reliable and quicker resolution of this infection, but it may be possible to clear this infection with IV antibiotics only. After extensive discussion of the pros and cons of each approach, we mutually decided to proceed with surgical debridement of these infected bite wounds today. Risks, benefits, and alternatives of surgery were explained in detail. The surgical procedure, as well as postoperative recovery and rehabilitation, was also explained in detail. Risks include bleeding; persistent infection; damage to surrounding structures such as nerves, blood vessels, and tendons that run in the area; persistent pain, weakness, or stiffness; or need for further surgery. The patient understands all of this and wishes to proceed with surgery. Informed consent was obtained.
[2021-07-17 09:15] LABS: BUN Creatinine Ratio 10.4 (10-20); Calcium 9.3 mg/dl (8.5-10.1); Est GFR (African American) 99.1 ml/min; Est GFR (Non-African American) 85.5 ml/min; Phosphorus 3.9 mg/dl (2.5-4.9); Potassium 3.6 mmol/L (3.5-5.1)
[2021-07-17] MEDS ORDERED: BUPIVACAINE 0.5 % 5 MG/1 ML MPF 30ML VIAL ONE (09:43)
[2021-07-17] MEDS ORDERED: LIDOCAINE 1% LOCAL 20 ML VIAL ONE (09:43)
[2021-07-17] MEDS ORDERED: ONDANSETRON INJ 2 MG/ML 2 ML VIAL IV PRN ×2 (09:49→11:45)
[2021-07-17] MEDS ORDERED: ATROPINE SULFATE 0.1 MG/ML 10ML SYR IV PRN (09:49)
[2021-07-17] MEDS ORDERED: HYDROmorphone INJ 1 MG/ML SYRINGE IV PRN (09:49)
[2021-07-17] MEDS ORDERED: ePHEDrine sulfate 50 MG/ML AMP IV PRN (09:49)
[2021-07-17] MEDS ORDERED: fentaNYL citrate 100 MCG/2 ML VIAL IV PRN (09:49)
[2021-07-17] MEDS ORDERED: KETOROLAC 30 MG/ML VIAL ONE (10:50)
--- NOTE | 2021-07-17 10:58 | Post Operative Brief Note ---
Immediate Post Op Note v1 Date of Surgery July 17, 2021 Pre & Post Diagnosis Operation Date: 07/17/21 09:10 Pre-Op Diagnosis: Infected Dog Bite of Forearm Post-Op Diagnosis: Infected Dog Bite of Forearm I identified the patient and participated in the time-out.: Yes Procedure Operation Date: 07/17/21 09:10 Actual Procedures p Right Forearm Incision and Drainage(Right) - Kelechi Ortiz M.D. Surgeon Kelechi Ortiz [employer] Mayco Hollingsworth PA-C Estimated Blood Loss 10 Findings Consistent with Post-Op Diagnosis No gross pus/abscess Drains Hemovac Drain (10Fr)
--- NOTE | 2021-07-17 11:13 | Operative Report ---
Post Operative Report Pre & Post Diagnosis Operation Date: 07/17/21 09:10 Pre-Op Diagnosis: Right Forearm Infected Dog Bite Post-Op Diagnosis: Right Forearm Infected Dog Bite I identified the patient and participated in the time-out.: Yes Procedure Operation Date: 07/17/21 09:10 Actual Procedures Right Forearm Incision and Drainage of infected dog bite wound, including skin and subcutaneous tissue, 5 x 5 cm ([id number]) - Kelechi Ortiz M.D. Surgeon Kelechi Ortiz Cloud Physicist Mayco Hollingsworth PA-C Estimated Blood Loss 10 Findings Consistent with Post-Op Diagnosis Specimens Culture swab for Gram stain, aerobic and anaerobic culture Drains Medium Hemovac Complications none Disposition Disposition: Recovery Room Indications Mr. Roy is a 30-year-old male who was bitten by dog over a week ago. He developed infection in the volar aspect of the right forearm. He had mild, slow improvement on IV antibiotics over a week, but not complete resolution of his infection. He had persistent drainage from 2 of the bite wounds, and therefore made the decision to proceed with surgical debridement of the wounds. History, clinical exam, and imaging were consistent with the above diagnosis. Risks, benefits, and alternatives of surgery were explained in detail. The patient understood all this and wished to proceed. Description of Procedure Patient was identified in the preoperative holding area. Operative extremity was marked. Patient was then brought back to the operating room, and general anesthesia was induced without complication. Preoperative antibiotics were held until intraoperative cultures were obtained. Tourniquet was placed on the right upper arm. Arm was then prepped and draped in a standard sterile fashion using Chlorhexidine prep. The arm was then exsanguinated with elevation only, and the tourniquet was inflated. I first inspected the wounds. There were 2 bite wounds on the volar aspect of the forearm at about the mid forearm level. Each one of these wounds was about 5 mm in length. Both were actively draining, mostly serosanguineous fluid. I planned for an incision connecting these 2 adjacent bite wounds that were draining. There was a separate more superficial appearing bite wound on the ulnar aspect of the volar forearm about 5 cm away from the 2 larger bite wounds; this smaller wound had significant induration around it, and possible fluid collection. I planned for a small longitudinal incision over this bite wound. I started first with the 2 larger bite wounds. The 2 wounds were connected, and then incision was carried proximally and distally as necessary for adequate exposure of the wound. Total incision length was approximately 5 cm. I incised through skin only, and sharply debrided the bite wound edges. I bluntly dissected through subcutaneous tissue down to the deep fascia. I did not encounter any gross purulence or obvious abscess, but there was thin serosanguineous fluid in the area. The wound clearly tunneled over to the smaller bite wound on the ulnar side of the forearm. A 1.5 cm longitudinal incision was made over the smaller wound. I was easily able to dissect between the 2 incisions through the subcutaneous tissue. Total wound area was approximately 5 x 5 cm; this felt like it was likely a decompressed abscess cavity. The wound edges were palpated, and there is no further tunneling in any direction. The deep fascia was palpated and found to be intact with no obvious penetration. The skin and subcutaneous tissue was sharply debrided with knife, scissors, and curette. After thorough debridement was complete, I then copiously irrigated the wound with 6 L of sterile saline via gravity irrigation. Medium Hemovac drain was then inserted with the trocar out the radial aspect of the volar forearm, and this was then sewn in place. Incisions were then loosely closed over the drain with 3-0 Prolene suture. I then anesthetized the wound bed with a 50/50 mixture of 1% lidocaine and 0.5% Marcaine without epinephrine. Sterile dressings were then applied with Xeroform, sterile gauze, ABD pad, sterile Webril, and Ed wrap. The drapes were removed, the patient was awakened from anesthesia, and taken to the Post Anesthesia Care Unit in stable condition. There were no immediate complications from the procedure. I was present and scrubbed for the entire procedure. Due to the complex nature of the procedure, the entire surgery was performed with the operational assistance of Mayco Hollingsworth PA-C. The fish hatchery assistant, under direct supervision, was involved in the performance of all aspects of the surgical procedure including patient positioning, tissue retraction, hemostasis, wound closure, and dressing application. I attest to the content of the Intraoperative Record and any orders documented therein. Any exceptions are noted below.
--- NOTE | 2021-07-17 11:14 | Anesthesiology Progress Note ---
Date of Service July 17, 2021 Anesthesia Post Procedure Vital Signs Vital Signs: Temp Pulse Pulse Resp BP Pulse Ox 07/17/21 11:05 76 16 145/88 H 98 07/17/21 10:58 36.4 C L 89 16 132/93 97 07/17/21 09:46 109 H 18 143/97 H 98 07/17/21 07:28 36.4 C L 87 16 143/89 H 98 07/16/21 23:13 36.7 C 77 16 143/92 H 98 07/16/21 15:04 36.8 C 98 H 18 133/82 97 Pain Intensity Right Anterior Ankle: Pain Intensity: 4 Right Arm: Pain Intensity: 4 Transfer of Care Handoff Completed per policy Notes Mental Status: alert / awake / arousable and participated in evaluation Patient Amnestic to Procedure: Yes Nausea / Vomiting: adequately controlled Pain: adequately controlled Airway Patency, RR, SpO2: stable & adequate BP & HR: stable & adequate Hydration State: stable & adequate Anesthetic Complications: no major complications apparent and Pt Satisfied with anesthetic care
[2021-07-17] MEDS ORDERED: SODIUM CHLORIDE 0.9% 1000ML 1,000 ML IV SCH (11:45)
[2021-07-17] MEDS ORDERED: bisacodyL 10 MG SUPP PR PRN (11:45)
[2021-07-17] MEDS ORDERED: MAGNESIUM HYDROXIDE SUSP 30 ML UDC PO PRN (11:45)
[2021-07-17] MEDS ORDERED: NALOXONE HCL 0.4 MG/1 ML VIAL/CARP IV PRN (11:45)
[2021-07-17] MEDS ORDERED: METOCLOPRAMIDE HCL INJ 5 MG/ML 2 ML VIAL IV PRN (11:45)
[2021-07-17] MEDS: DOCUSATE SODIUM 100 MG CAP PO SCH (21:03)
[2021-07-17] MEDS: SENNA 8.6 MG TAB PO SCH (21:03)
[2021-07-17] MEDS: CETIRIZINE HCL 10 MG TABLET PO SCH (21:14)
[2021-07-17] MEDS: MoRPHine SULFATE 4 MG/ML 1 ML CARP\\VIAL IV PRN (21:18)
[2021-07-18] MEDS: PIPERACILLIN/TAZOBACTAM 4.5 GM in DEXTROSE 5% 100 ML IV SCH ×3 (06:08→21:27)
[2021-07-18] MEDS: traMADol HCL 50 MG TABLET PO PRN ×3 (06:10→17:57)
[2021-07-18] MEDS: MoRPHine SULFATE 4 MG/ML 1 ML CARP\\VIAL IV PRN ×3 (08:18→23:15)
[2021-07-18] MEDS: DOCUSATE SODIUM 100 MG CAP PO SCH ×2 (08:19→21:29)
[2021-07-18] MEDS: DAPTOmycin 600 MG in SYRINGE 0 ML IV SCH (08:19)
[2021-07-18] MEDS: buPROPion XL 300 MG TABCR PO SCH (08:20)
[2021-07-18] MEDS: FAMOTIDINE 20 MG TAB PO SCH (08:20)
[2021-07-18] MEDS: MULTIVITAMIN TAB PO SCH (08:20)
--- NOTE | 2021-07-18 08:28 | Orthopedic Progress Note ---
Date of Service July 18, 2021 Assessment & Plan (1) Infected dog bite of forearm: Plan: POD#1 Right forearm I&D Continue IV antibiotics. Continue elevation of the RUE Plan on dressing change tomorrow. Monitor hemovac output AM labs pending Gram-negative bacilli noted on culture on admission. Eikenella species noted from superficial wound culture done several days ago. Intraop op gram stain with rare WBCs, no organisms. Culture pending Admission and Anticipated Discharge Date Admission Date: July 12, 2021 Supervising Physician Co-Signing Physician Notes Patient seen and examined. Agree with DEMETRIO Hollingsworth's note as above. He is resting comfortably. He had some increased pain last night, but controlled now. Overall he is doing well. Motor and sensory function is intact distally. Minimal drain output; has mostly serous fluid in the drain tubing and canister. Intraoperative cultures are still negative; preoperative superficial wound cultures grew rare Eikenella corrodens. Currently receiving daptomycin and Zosyn. Plan for dressing change and drain removal tomorrow, then follow clinical course to ensure that his cellulitis resolves with continued IV antibiotics. Subjective Patient is POD1 right forearm I&D. Having some pain in arm compared to yesterday but tolerable. No other complaints. Denies chest pain, sob, dizziness, fever, chills, n/v/d. Review of Systems Review of Systems: All systems reviewed & are unremarkable except as noted in Subjective Physical Exam Physical Exam: Right forearm-Dressing is c/d/i, fingers mobile, distally n/v status and sensation intact. Hemovac in place. Constitutional: well developed and well nourished; no acute distress Results & Data ([facility]) Vital Signs (Past 12 Hours) Vital Signs Temp Pulse Pulse Resp BP Pulse Ox 07/18/21 07:37 36.8 C 87 16 124/71 98 07/17/21 23:30 36.8 C 90 16 135/87 94 (1) Infected dog bite of forearm Encounter type: initial encounter Laterality: right Qualified Code(s): S51.851A - Open bite of right forearm, initial encounter; L08.9 - Local infection of the skin and subcutaneous tissue, unspecified; W54.0XXA - Bitten by dog, initial encounter
[2021-07-18 08:41] LABS: Hematocrit (blood only) 39.9 % (42-52); Hemoglobin 14.3 g/dL (14.0-18.0); Mean Corpuscular Hemoglobin 32.2 pg (25-34); Mean Corpuscular Hgb Conc 35.8 g/dL (32-36); Mean Corpuscular Volume 89.9 fL (80-100); Mean Platelet Volume 9.9 fL (7.4-10.4); Platelet Count 264 K/uL (130-400); RDW Standard Deviation 38.8 fL (36.4-46.3); Red Blood Count 4.44 M/uL (4.7-6.1); White Blood Count 13.68 K/uL (4.8-10.8)
--- NOTE | 2021-07-18 08:45 | Hospitalist Progress Note ---
Date of Service July 18, 2021 Assessment & Plan (1) Sepsis: Plan: Doing well on Zosyn and Dapto Dog bite at dorsum of forearm Erythema and warmth, swelling generally improved, benjamín. at wrist lymphangitis is now noted more proximally Induration and some drainage at dog bite noted as well Afebrile Wound culture obtained (07/11) - gram-negative bacilli Wound culture 07/12 - probable Eikenella corrodens White blood cell count normalized 8.5 K (07/15) Orthopedics consulted - MRI of forearm (07/16) - Subcutaneous edema and enhancement within the forearm consistent with a cellulitis. No loculated fluid collections to suggest an abscess. Pt now s/p I&D (07/17) - patient tolerated well, currently only some pain in right forearm ID consulted - cont. IV antibiotics for next several days, re-assess, poss. surg. exploration if needed given gas on CT when DC on PO - would increase Augmentin to TID dose d/t BMI (2) Cellulitis of right forearm: Plan: plan as above. (3) Infected dog bite of forearm: Plan: plan as above. Low risk rabies-Rig not indicated. Tetanus UTD. conservative wound care. (4) Depression: Plan: cont Bupropion per home regimen. (5) Obesity: Plan: Lifestyle modifications recommended (6) DVT prophylaxis: Plan: SCDs/ambulation/Lovenox Full Code Dispo- plan to DC home possibly in next 2 days. Admission and Anticipated Discharge Date Admission Date: July 12, 2021 Subjective 30 yo M presented with sepsis after a dogbite to the forearm. Seen in the ER on Monday and he was started on Augmentin, returning this admission after approximately 3 doses. Doing well on Zosyn and Dapto, underwent I&D w/ ortho yesterday Sitting up in bed in no acute distress No fevers, chills, chest pain, shortness of breath, pain improved Some pain overnight after surgery Wound culture obtained- G negat.bacilli, likely Eikenella Review of Systems Review of Systems: All systems reviewed & are unremarkable except as noted in Subjective Physical Exam Physical Exam: CONSTITUTIONAL: obese young M , in NAD EYES: normal conjunctivae, no scleral icterus, MMM ENT: external ear and nose normal, MMM NECK: trachea midline RESPIRATORY: clear to auscultation bilaterally, no crackles, rales or wheezes, normal respiratory effort CARDIOVASCULAR: RRR, S1 and 2 heard without murmurs, gallops GASTROINTESTINAL: soft, nontender, nondistended, no guarding. MUSCULOSKELETAL: strength 5/5 throughout, head is normocephalic and atraumatic SKIN: puncture wound R forearm with receding erythema and warmth at wrist however lymphangitis now noted proximally, + induration at bite noted.+ serous drainage - prior to I&D, (now s/p I&D w/ ortho - R forearm in dressings, Hemovac applied). Normal ROM of wrist and elbow on right. No sensory loss. NEUROLOGIC: No facial asymmetry, no dysarthria, moves extremities PSYCHIATRIC: alert and cooperative, oriented x3. Euthymic mood. Results & Data Results & Data ([facility]) Vital Signs (Past 12 Hours) Vital Signs Temp Pulse Pulse Resp BP Pulse Ox 07/18/21 07:37 36.8 C 87 16 124/71 98 07/17/21 23:30 36.8 C 90 16 135/87 94 Laboratory Results 07/18/21 07/18/21 Range/Units 08:04 08:04 WBC 13.68 H (4.8-10.8) K/uL RBC 4.44 L (4.7-6.1) M/uL Hgb 14.3 (14.0-18.0) g/dL Hct 39.9 L (42-52) % MCV 89.9 (80-100) fL MCH 32.2 (25-34) pg MCHC 35.8 (32-36) g/dL RDW Std Deviation 38.8 (36.4-46.3) fL RDW Coeff of Eloisa 12.0 (11.5-14.5) % Plt Count 264 (130-400) K/uL MPV 9.9 (7.4-10.4) fL Sodium 138 (136-145) mmol/L Potassium 3.5 (3.5-5.1) mmol/L Chloride 104 (98-107) mmol/L Carbon Dioxide 24 (21-32) mmol/L Anion Gap 10.0 (3-11) BUN 12 (7-18) mg/dl Creatinine 1.02 (0.6-1.4) mg/dl Est Cr Clr Drug Dosing 146.6 ml/min Est GFR ( Amer) 114.6 ml/min Est GFR (Non-Af Amer) 98.9 ml/min BUN/Creatinine Ratio 12.0 (10-20) Glucose 110 H (70-99) mg/dl Calcium 8.9 (8.5-10.1) mg/dl Medications Administered Current Inpatient Medications Acetaminophen (Acetaminophen 325 Mg Tab) 650 mg PO Q4H PRN PRN Reason: Pain or Fever Stop: 08/11/21 03:06 Last Admin: 07/14/21 16:01 Dose: 650 mg Documented by: Bisacodyl (Bisacodyl 10 Mg Supp) 10 mg MT DAILY PRN PRN Reason: Constipation Stop: 08/16/21 11:44 Bupropion HCl (Bupropion Xl 300 Mg Tabcr) 300 mg PO DAILY [facility] Stop: 08/11/21 08:59 Last Admin: 07/18/21 08:20 Dose: 300 mg Documented by: Cetirizine HCl (Cetirizine Hcl 10 Mg Tablet) 5 mg PO QPM [facility] Stop: 08/11/21 20:59 Last Admin: 07/17/21 21:14 Dose: Not Given Documented by: Docusate Sodium (Docusate Sodium 100 Mg Cap) 100 mg PO BID [facility] Stop: 08/16/21 20:59 Last Admin: 07/18/21 08:19 Dose: 100 mg Documented by: Famotidine (Famotidine 20 Mg Tab) 20 mg PO QAM [facility] Stop: 08/14/21 17:14 Last Admin: 07/18/21 08:20 Dose: 20 mg Documented by: Promethazine HCl 12.5 mg/ (Sodium Chloride) 50.5 mls @ 202 mls/hr IV Q6H PRN PRN Reason: Nausea And Vomiting Stop: 08/11/21 03:06 Lorazepam (Ativan) 0.5 mg in 1 mls @ 1 mls/min IV Q4H PRN PRN Reason: Anxiety/Agitation Stop: 08/11/21 03:06 Piperacillin Sod/Tazobactam (Sod 4.5 gm/ Dextrose) 120 mls @ 30 mls/hr IV Q8H [facility]; Protocol Stop: 07/19/21 04:59 Last Admin: 07/18/21 06:08 Dose: 30 mls/hr Documented by: Daptomycin 600 mg/ Syringe 12 mls @ 4 mls/min IV DAILY [facility]; Protocol Stop: 07/18/21 23:59 Last Admin: 07/18/21 08:19 Dose: 4 mls/min Documented by: Magnesium Hydroxide (Magnesium Hydroxide Susp 30 Ml Udc) 30 ml PO Q6H PRN PRN Reason: Constipation Stop: 08/16/21 11:44 Metoclopramide HCl (Metoclopramide Hcl Inj 5 Mg/Ml 2 Ml Vial) 10 mg IV Q6H PRN PRN Reason: Nausea And Vomiting Stop: 08/16/21 11:44 Miscellaneous Information (Piperacill/Tazobac Consult Active) 1 ea N/A UD PRN PRN Reason: Consult Stop: 08/10/21 22:23 Miscellaneous Information (Daptomycin Consult Active) 1 ea N/A UD PRN PRN Reason: Consult Stop: 08/11/21 13:56 Morphine Sulfate (Morphine Sulfate 4 Mg/Ml 1 Ml Carp\Vial) 4 mg IV Q4H PRN PRN Reason: Pain Stop: 07/26/21 03:06 Last Admin: 07/18/21 08:18 Dose: 4 mg Documented by: Multivitamins (Multivitamin Tab) 1 tab PO QAM [facility] Stop: 08/17/21 08:59 Last Admin: 07/18/21 08:20 Dose: 1 tab Documented by: Naloxone HCl (Naloxone Hcl 0.4 Mg/1 Ml Vial/Carp) 0.1 mg IV Q5M PRN PRN Reason: Oversedation/Resp Depression Stop: 08/16/21 11:44 Ondansetron HCl (Ondansetron Inj 2 Mg/Ml 2 Ml Vial) 4 mg IV Q6H PRN PRN Reason: Nausea And Vomiting Stop: 08/16/21 11:44 Sennosides (Senna 8.6 Mg Tab) 17.2 mg PO HS [facility] Stop: 08/16/21 20:59 Last Admin: 07/17/21 21:03 Dose: Not Given Documented by: Tramadol HCl (Tramadol Hcl 50 Mg Tablet) 50 - 100 mg PO Q4H PRN PRN Reason: Pain & Pre PT Stop: 08/16/21 11:44 Last Admin: 07/18/21 06:10 Dose: 100 mg Documented by: (1) Infected dog bite of forearm Encounter type: initial encounter Laterality: right Qualified Code(s): S51.851A - Open bite of right forearm, initial encounter; L08.9 - Local infection of the skin and subcutaneous tissue, unspecified; W54.0XXA - Bitten by dog, initial encounter
[2021-07-18 09:17] LABS: Calcium 8.9 mg/dl (8.5-10.1); Creatinine Clr Calc Pharmacy 146.6 ml/min; Est GFR (African American) 114.6 ml/min; Est GFR (Non-African American) 98.9 ml/min; Potassium 3.5 mmol/L (3.5-5.1)
[2021-07-18] MEDS ORDERED: diphenhydrAMINE Capsule 25 MG CAP PO ONE (17:11)
[2021-07-18] MEDS ORDERED: diphenhydrAMINE Capsule 25 MG CAP PO PRN (17:13)
--- NOTE | 2021-07-18 17:28 | Hospitalist Progress Note ---
Date of Service July 18, 2021 Assessment & Plan Admission and Anticipated Discharge Date Admission Date: July 12, 2021 Subjective Called by the nursing staff as patient is developing a rash, underneath his Ed wraps from surgery. Patient underwent surgical procedure yesterday for dog bite infection. There is no vascular or neurological compromise. Patient is able to move fingers without difficulty, no weakness, good capillary refill, no numbness tingling, no sensory deficits. Rash is developing underneath Ed wraps, and towards elbow area, rash is slightly raised. Ed wrap is not tight and and rash could be seen underneath. Patient has no fevers, no shortness of breath or any other concerning symptoms. Orthopedics team notified by the nursing staff. For now we will evelia the area with a marker, will give Benadryl and Pepcid for possible allergy/sensitivity reaction. Discussed with the pharmacy, not clear at this time if any new medications could be causing this. We will continue to closely monitor. MD Annita Results & Data Results & Data ([facility]) Vital Signs (Past 12 Hours) Vital Signs Temp Pulse Resp BP Pulse Ox 07/18/21 16:26 36.6 C 90 16 136/83 95 07/18/21 07:37 36.8 C 87 16 124/71 98
[2021-07-18] MEDS ORDERED: FAMOTIDINE 20 MG in SYRINGE 3 ML IV ONE (17:30)
[2021-07-18] MEDS: SENNA 8.6 MG TAB PO SCH (21:29)
[2021-07-18] MEDS: CETIRIZINE HCL 10 MG TABLET PO SCH (21:29)
[2021-07-19] MEDS: MULTIVITAMIN TAB PO SCH (07:23)
[2021-07-19] MEDS: DOCUSATE SODIUM 100 MG CAP PO SCH (07:23)
[2021-07-19] MEDS: FAMOTIDINE 20 MG TAB PO SCH (07:23)
[2021-07-19] MEDS: buPROPion XL 300 MG TABCR PO SCH (07:23)
[2021-07-19] MEDS ORDERED: diphenhydrAMINE Capsule 25 MG CAP PO ONE (07:35)
[2021-07-19] MEDS ORDERED: FAMOTIDINE 20 MG in SYRINGE 3 ML IV ONE (08:00)
[2021-07-19 08:44] LABS: Hematocrit (blood only) 40.8 % (42-52); Hemoglobin 14.3 g/dL (14.0-18.0); Mean Corpuscular Hemoglobin 31.8 pg (25-34); Mean Corpuscular Volume 90.7 fL (80-100); Mean Platelet Volume 9.8 fL (7.4-10.4); Platelet Count 230 K/uL (130-400); RDW Standard Deviation 39.5 fL (36.4-46.3)
[2021-07-19 09:19] LABS: BUN Creatinine Ratio 13.8 (10-20); Calcium 8.8 mg/dl (8.5-10.1); Creatinine Clr Calc Pharmacy 131.2 ml/min; Est GFR (African American) 100.2 ml/min; Est GFR (Non-African American) 86.4 ml/min; Magnesium 2.3 mg/dl (1.8-2.4); Potassium 3.8 mmol/L (3.5-5.1)
--- NOTE | 2021-07-19 09:23 | Orthopedic Progress Note ---
Date of Service July 19, 2021 Assessment & Plan (1) Infected dog bite of forearm: Plan: POD#2 Right forearm I&D Continue IV antibiotics. Continue elevation of the RUE Pt states new meds this weekend include Morphine Sulfate, Multiple Vitamin and Colace. Will dc. Possible new rash due to new meds. Moved his bowels on Monday. Does not feel uncomfortable. Passing flatus. Gram-negative bacilli noted on culture on admission. Eikenella species noted from superficial wound culture done several days ago. Intraop op gram stain with rare WBCs, no organisms. Culture pending Daily dressing changes. Admission and Anticipated Discharge Date Admission Date: July 12, 2021 Subjective Pt sitting up in bed awake, alert. States he developed a rash over the weekend. States he was itching mostly over the arms/shoulders. Itching close to the right elbow. Benadryl did not seem to help much. Pain controlled currenlty. Physical Exam Physical Exam: Dressing removed. Hemovac dc'd. Wounds benign. Overall improvement of erythema of the mid forearm. Wounds redressed. One area of erythema at the medial elbow that is non tender. States it was itchy earlier but no longer. Good ROM of the elbow/wrist. Noted macular rash on his arms and shoulders. Maybe a little bit on his LE's. Results & Data ([facility]) Vital Signs (Past 12 Hours) Vital Signs Temp Pulse Resp BP Pulse Ox 07/19/21 07:45 36.9 C 85 18 129/85 94 07/18/21 22:17 37.0 C 82 16 139/83 95 (1) Infected dog bite of forearm Encounter type: initial encounter Laterality: right Qualified Code(s): S51.851A - Open bite of right forearm, initial encounter; L08.9 - Local infection of the skin and subcutaneous tissue, unspecified; W54.0XXA - Bitten by dog, initial encounter
--- NOTE | 2021-07-19 10:42 | Hospitalist Progress Note ---
Date of Service July 19, 2021 Assessment & Plan (1) Sepsis: Plan: Doing well on Zosyn and Dapto Dog bite at dorsum of forearm Erythema and warmth, swelling generally improved, benjamín. at wrist lymphangitis is now noted more proximally Induration and some drainage at dog bite noted as well Afebrile Wound culture obtained (07/11) - gram-negative bacilli Wound culture 07/12 - probable Eikenella corrodens White blood cell count normalized 8.5 K (07/15) Orthopedics consulted - MRI of forearm (07/16) - Subcutaneous edema and enhancement within the forearm consistent with a cellulitis. No loculated fluid collections to suggest an abscess. Pt now s/p I&D (07/17) - patient tolerated well, currently only some pain in right forearm ID consulted - cont. IV antibiotics for next several days, re-assess, poss. surg. exploration if needed given gas on CT when DC on PO - would increase Augmentin to TID dose d/t BMI 07/18 PM patient developed rash in the afternoon, slightly raised, nontender, consistent with likely allergic/sensitivity reaction. Received Benadryl and IV Pepcid. Area was marked. 07/19 - patient is feeling well overall, rash has not worsened overnight, seems actually improved on RLE- slightly light pink, there is also a light rash on the other extremity though. Discussed rash with orthopedic surgery and with ID physician (Dr. Carlson, [facility]). Not likely cellulitis, more likely allergy/sensitivity reaction. Will stop IV antibiotics, and will switch to p.o. Augmentin TID for 7 days as discussed previously. Patient will have a close follow-up with outpatient physician as well as orthopedics. If rash not improved in next few days, consider dermatology referral as well. Patient was instructed in addition to Augmentin, to take his home Zyrtec and Pepcid. In addition recommend taking Benadryl and hydrocortisone cream was also prescribed. (2) Cellulitis of right forearm: Plan: plan as above. (3) Infected dog bite of forearm: Plan: plan as above. Low risk rabies-Rig not indicated. Tetanus UTD. conservative wound care. (4) Depression: Plan: cont Bupropion per home regimen. (5) Obesity: Plan: Lifestyle modifications recommended (6) DVT prophylaxis: Plan: SCDs/ambulation/Lovenox Full Code Dispo- plan to DC home today. Admission and Anticipated Discharge Date Admission Date: July 12, 2021 Subjective 30 yo M presented with sepsis after a dogbite to the forearm. Seen in the ER on Monday and he was started on Augmentin, returning this admission after approximately 3 doses. Doing well on Zosyn and Dapto, underwent I&D w/ ortho on Monday Sitting up in bed in no acute distress No fevers, chills, chest pain, shortness of breath, pain much improved However developed a rash yesterday afternoon, slightly raised, not tender Wound culture obtained- G negat.bacilli, likely Eikenella Review of Systems Review of Systems: All systems reviewed & are unremarkable except as noted in Subjective Physical Exam Physical Exam: CONSTITUTIONAL: obese young M , in NAD EYES: normal conjunctivae, no scleral icterus, MMM ENT: external ear and nose normal, MMM NECK: trachea midline RESPIRATORY: clear to auscultation bilaterally, no crackles, rales or wheezes, normal respiratory effort CARDIOVASCULAR: RRR, S1 and 2 heard without murmurs, gallops GASTROINTESTINAL: soft, nontender, nondistended, no guarding. MUSCULOSKELETAL: strength 5/5 throughout, head is normocephalic and atraumatic SKIN: puncture wound R forearm with receding erythema and warmth at wrist however lymphangitis now noted proximally, + induration at bite noted.+ serous drainage - prior to I&D, (now s/p I&D w/ ortho - R forearm in dressings, Hemovac now removed). light pink raised rash noted, nontender. Normal ROM of wrist and elbow on right. No sensory loss. NEUROLOGIC: No facial asymmetry, no dysarthria, moves extremities PSYCHIATRIC: alert and cooperative, oriented x3. Euthymic mood. Results & Data Results & Data ([facility]) Vital Signs (Past 12 Hours) Vital Signs Temp Pulse Resp BP Pulse Ox 07/19/21 07:45 36.9 C 85 18 129/85 94 Laboratory Results 07/19/21 07/19/21 Range/Units 08: 08: WBC 9.30 (4.8-10.8) K/uL RBC 4.50 L (4.7-6.1) M/uL Hgb 14.3 (14.0-18.0) g/dL Hct 40.8 L (42-52) % MCV 90.7 (80-100) fL MCH 31.8 (25-34) pg MCHC 35.0 (32-36) g/dL RDW Std Deviation 39.5 (36.4-46.3) fL RDW Coeff of Eloisa 12.0 (11.5-14.5) % Plt Count 230 (130-400) K/uL MPV 9.8 (7.4-10.4) fL Sodium 139 (136-145) mmol/L Potassium 3.8 (3.5-5.1) mmol/L Chloride 105 (98-107) mmol/L Carbon Dioxide 27 (21-32) mmol/L Anion Gap 8.0 (3-11) BUN 16 (7-18) mg/dl Creatinine 1.14 (0.6-1.4) mg/dl Est Cr Clr Drug Dosing 131.2 ml/min Est GFR ( Amer) 100.2 ml/min Est GFR (Non-Af Amer) 86.4 ml/min BUN/Creatinine Ratio 13.8 (10-20) Glucose 85 (70-99) mg/dl Calcium 8.8 (8.5-10.1) mg/dl Phosphorus 4.0 (2.5-4.9) mg/dl Magnesium 2.3 (1.8-2.4) mg/dl Medications Administered Current Inpatient Medications Acetaminophen (Acetaminophen 325 Mg Tab) 650 mg PO Q4H PRN PRN Reason: Pain or Fever Stop: 08/11/21 03:06 Last Admin: 07/14/21 16:01 Dose: 650 mg Documented by: Bisacodyl (Bisacodyl 10 Mg Supp) 10 mg [place] DAILY PRN PRN Reason: Constipation Stop: 08/16/21 11:44 Bupropion HCl (Bupropion Xl 300 Mg Tabcr) 300 mg PO DAILY LALA Stop: 08/11/21 08:59 Last Admin: 07/19/21 07:23 Dose: 300 mg Documented by: Cetirizine HCl (Cetirizine Hcl 10 Mg Tablet) 5 mg PO QPM LALA Stop: 08/11/21 20:59 Last Admin: 07/18/21 21:29 Dose: Not Given Documented by: Diphenhydramine HCl (Diphenhydramine Capsule 25 Mg Cap) 25 mg PO Q4H PRN PRN Reason: rash, itching Stop: 08/17/21 17:12 Famotidine ([facility]idine 20 Mg Tab) [facility] [place]: 08/14/21 17:14 Last Admin: 07/19/21 07:23 Dose: 20 mg Documented by: Promethazine HCl 12.5 mg/ (Sodium Chloride) 50.5 mls @ 202 mls/hr IV Q6H PRN PRN Reason: Nausea And Vomiting Stop: 08/11/21 03:06 Lorazepam (Ativan) 0.5 mg in 1 mls @ 1 mls/min IV Q4H PRN PRN Reason: Anxiety/Agitation Stop: 08/11/21 03:06 Piperacillin Sod/Tazobactam (Sod 4.5 gm/ Dextrose) 120 mls @ 30 mls/hr IV Q8H LALA; Protocol Stop: 07/26/21 10:59 Magnesium Hydroxide (Magnesium Hydroxide Susp 30 Ml Udc) 30 ml PO Q6H PRN PRN Reason: Constipation Stop: 08/16/21 11:44 Metoclopramide HCl (Metoclopramide Hcl Inj 5 Mg/Ml 2 Ml Vial) 10 mg IV Q6H PRN PRN Reason: Nausea And Vomiting Stop: 08/16/21 11:44 Miscellaneous Information (Piperacill/Tazobac Consult Active) 1 ea N/A UD PRN PRN Reason: Consult Stop: 08/10/21 22:23 Multivitamins (Multivitamin Tab) 1 tab PO [facility] Stop: 08/17/21 08:59 Last Admin: 07/19/21 07:23 Dose: 1 tab Documented by: Naloxone HCl (Naloxone Hcl 0.4 Mg/1 Ml Vial/Carp) 0.1 mg IV Q5M PRN PRN Reason: Oversedation/Resp Depression Stop: 08/16/21 11:44 Ondansetron HCl (Ondansetron Inj 2 Mg/Ml 2 Ml Vial) 4 mg IV Q6H PRN PRN Reason: Nausea And Vomiting Stop: 08/16/21 11:44 Sennosides (Senna 8.6 Mg Tab) 17.[address] [facility] Stop: 08/16/21 20:59 Last Admin: 07/18/21 21:29 Dose: Not Given Documented by: Tramadol HCl (Tramadol Hcl 50 Mg Tablet) 50 - 100 mg PO Q4H PRN PRN Reason: Pain & Pre PT Stop: 08/16/21 11:44 Last Admin: 07/18/21 17:57 Dose: 100 mg Documented by: (1) Infected dog bite of forearm Encounter type: initial encounter Laterality: right Qualified Code(s): S51.851A - Open bite of right forearm, initial encounter; L08.9 - Local infection of the skin and subcutaneous tissue, unspecified; W54.0XXA - Bitten by dog, initial encounter
[2021-07-19] MEDS ORDERED: PIPERACILLIN/TAZOBACTAM 4.5 GM in DEXTROSE 5% 100 ML IV SCH (11:00)
--- NOTE | 2021-07-19 14:04 | Discharge Summary ---
Date of Service July 19, 2021 Admission HPI Per Admitting Provider History obtained from patient, family, and records. Medical history significant for allergic rhinitis, GERD. Patient was bitten on the right forearm by his girlfriend's parents rescue dog 2 days ago. Subsequent swelling. Patient consulted ER where subsequent wound repair was done. Patient discharged on Augmentin course. Worsening swelling despite compliance with antibiotic regimen. Temperature of 102 at home. No chest pain, no S OB. At the ER, sutures from right forearm were removed. Subsequent purulent bloody drainage noted. IV Zosyn given at the ER. 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 Admission Exam Per Admitting Provider GENERAL: Comfortable, morbidly obese, pleasant, no respiratory distress SKIN: Normal color, warm HEENT: Jessie palpebral conjunctivae, no ptosis, dry buccal mucosa NECK : Supple, short neck, no tenderness CHEST : CTA, no tenderness HEART : Tachycardic, no obvious murmurs ABDOMEN: Some distention, nontender EXTREMITIES : Tender right forearm induration with serosanguineous drainage, minimal LE swelling/tenderness, no other conspicuous deformities noted NEUROLOGIC : Coherent, no facial asymmetry, no other gross focality Principal Diagnosis Sepsis, right forearm dog bite infection, cellulitis Discharge Exam CONSTITUTIONAL: obese young M , in NAD EYES: normal conjunctivae, no scleral icterus, MMM ENT: external ear and nose normal, MMM NECK: trachea midline RESPIRATORY: clear to auscultation bilaterally, no crackles, rales or wheezes, normal respiratory effort CARDIOVASCULAR: RRR, S1 and 2 heard without murmurs, gallops GASTROINTESTINAL: soft, nontender, nondistended, no guarding. MUSCULOSKELETAL: strength 5/5 throughout, head is normocephalic and atraumatic SKIN: puncture wound R forearm with receding erythema and warmth at wrist however lymphangitis now noted proximally, + induration at bite noted.+ serous drainage - prior to I&D, (now s/p I&D w/ ortho - R forearm in dressings, Hemovac now removed). light pink raised rash noted, nontender. Normal ROM of wrist and elbow on right. No sensory loss. NEUROLOGIC: No facial asymmetry, no dysarthria, moves extremities PSYCHIATRIC: alert and cooperative, oriented x3. Euthymic mood. Discharge Data Allergies Allergy/AdvReac Type Severity Reaction Status Date / Time shellfish derived Allergy Intermediate Hives Verified 07/12/21 09:14 Sulfa (Sulfonamide Allergy Unknown UNKNOWN--HAPPENED Unverified 07/11/21 22:30 Antibiotics) A CHILD Consultations 07/11/21 23:04 ED Decision to Admit Stat 07/12/21 00:56 Consult Orthopedic Surgery Routine 07/12/21 10:20 Consult Infectious Diseases Routine Procedures Performed Operation Date: 07/17/21 09:10 Actual Procedures p Right Forearm Incision and Drainage(Right) - Kelechi Ortiz M.D. Ordered Studies 07/12/21 00:50 CT forearm RT w con Urgent IMPRESSION: 1. Mild to moderate subcutaneous edema of the volar forearm extends from the elbow to the wrist. Punctate foci of subcutaneous emphysema. Findings are suggestive of cellulitis with penetrating trauma. No abscess. 2. No acute bony abnormality. 07/16/21 09:25 MR forearm RT wo/w con Routine IMPRESSION: 1. Subcutaneous edema and enhancement within the forearm consistent with a cellulitis. No loculated fluid collections to suggest an abscess. 2. No fracture or dislocation. Hospital Course (1) Sepsis: Doing well on Zosyn and Dapto Dog bite at dorsum of forearm Erythema and warmth, swelling generally improved, benjamín. at wrist lymphangitis is now noted more proximally Induration and some drainage at dog bite noted as well Afebrile Wound culture obtained (07/11) - gram-negative bacilli Wound culture 07/12 - probable Eikenella corrodens White blood cell count normalized 8.5 K (07/15) Orthopedics consulted - MRI of forearm (07/16) - Subcutaneous edema and enhancement within the forearm consistent with a cellulitis. No loculated fluid collections to suggest an abscess. Pt now s/p I&D (07/17) - patient tolerated well, currently only some pain in right forearm ID consulted - cont. IV antibiotics for next several days, re-assess, poss. surg. exploration if needed given gas on CT when DC on PO - would increase Augmentin to TID dose d/t BMI 07/18 PM patient developed rash in the afternoon, slightly raised, nontender, consistent with likely allergic/sensitivity reaction. Received Benadryl and IV Pepcid. Area was marked. 07/19 - patient is feeling well overall, rash has not worsened overnight, seems actually improved on RLE- slightly light pink, there is also a light rash on the other extremity though. Discussed rash with orthopedic surgery and with ID physician (Dr. Carlson, [facility]). Not likely cellulitis, more likely allergy/sensitivity reaction. Will stop IV antibiotics, and will switch to p.o. Augmentin TID for 7 days as discussed previously. Patient will have a close follow-up with outpatient physician as well as orthopedics. If rash not improved in next few days, consider dermatology referral as well. Patient was instructed in addition to Augmentin, to take his home Zyrtec and Pepcid. In addition recommend taking Benadryl and hydrocortisone cream was also prescribed. (2) Cellulitis of right forearm: plan as above. (3) Infected dog bite of forearm: plan as above. Low risk rabies-Rig not indicated. Tetanus UTD. conservative wound care. (4) Depression: cont Bupropion per home regimen. (5) Obesity: Lifestyle modifications recommended (6) DVT prophylaxis: SCDs/ambulation/Lovenox Full Code Dispo- plan to DC home today. Total Time Total Time Spent Total Time Spent (In Minutes): 40 Discharge Plan Discharge Items Patient Disposition: Home - Self-Care Reason For Visit: SEPSIS Discharge Diagnosis: Sepsis, right forearm dog bite infection, cellulitis Condition on Discharge: Good Activity: Resume your previous activity Non-emergency contact: Primary Care Provider and Surgeon Call non-emergency contact if: you have any medication questions and your symptoms worsen Follow-up/Referrals: Chaitanya Jarvis DO [Primary Care Provider] - (Date & Time 07/23/2021 1:40 PM Provider Chaitanya Jarvis DO Department [facility] ) Diet: Regular Addtl Attending Provider Instructions: Follow-up with your family physician, the appointment is scheduled for you for July 23. In the meantime continue taking your Zyrtec and Pepcid, in addition take Benadryl 25 mg every 4 hours. For rash you can also use hydrocortisone cream, however make sure you do not get anywhere close to the surgical incision. Finish antibiotic treatment with Augmentin, take it 3 times a day. If anything changes, such as you develop fever, or rash is worsened, discuss this with your family physician immediately. If you have any questions about your surgical incisions, or how to take care of your arm after surgery, please call orthopedics office, the number is below. 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 You may shower if you keep a water proof covering over the wound. You can get the wound wet in 72 hours from the day of surgery if the wounds are remaining dry. Do not soak the wound. No tub baths. No direct shower pressure on the wound. Call if you notice your symptoms are returning. Follow up with Dr Ortiz in 10-14 days from the day of surgery. Call for appointment. [phone]. Pending Studies at Discharge: No Stand-Alone Forms: My [facility] [employer], Smoking Cessation, Work/School Release Medications and DC Order Prescriptions: New diphenhydramine HCl [Benadryl] 25 mg Capsule 25 mg PO Q4H 5 Days Qty: 30 RF: 0 famotidine 20 mg Tablet 20 mg PO QAM 7 Days Qty: 7 RF: 0 hydrocortisone [Anti-Itch (HC)] 1 % ointment 1 applic topical DAILY PRN (Reason: itching) Qty: 28.35 RF: 0 amoxicillin-pot clavulanate [Augmentin] 875-125 mg tablet 1 tab PO TID 7 Days Qty: 21 RF: 0 Continued bupropion HCl 300 mg tablet extended release 24 hr 300 mg PO DAILY RF: 0 levocetirizine 5 mg tablet 5 mg PO QPM RF: 0 Changed amoxicillin-pot clavulanate [Augmentin] 875-125 mg tablet 1 tab PO TID 7 Days Qty: 21 RF: 0 Discharge Orders: Discharge Order (Routine); Ordered 07/19/21 Ordered By: Ck Ariza Admission Data Admit Date/Time: 07/12/21 00:53 Attending Provider: Ck Ariza Admit Provider: Gomez Tejeda Primary Care Provider: Chaitanya Jarvis Other Providers: Gomez Tejeda ; Roosevelt Barboza ; Robby Clark ; Evan Bliss ; Monse Mohan ; Mayco Santos ; Janay Iniguez ; Akash Roa ; Andrez Lopez ; Johnny Davis ; Jose Alva. ; Andrez Villagran ; Todd Muir ; Hernan Fofana ; Mitch Cardenas ; Wayne Flor ; Janay Foster ; Mike Cunningham ; Kelechi Ortiz ; Meghana Doe ; Mayco Hollingsworth ; Corin Grady ; Sarwat Mclain ; Shawnee Craig ; Jj Awad I. ; Peña Ohara II ; Yari Vega ; Johnny Carlson.
== END 2021-07-19 14:46 | disposition home or self-care (01) | DRG 854 ==
LOC: ED 22:11 → SUATTDRO 07-12 00:53 → 1E 07-12 00:53 → 2N 07-12 08:45 → 3N 07-14 22:21
DX: Y92.89 Other specified places as the place of occurrence of the external cause; K21.9 Gastro-esophageal reflux disease without esophagitis; F32.9 Major depressive disorder, single episode, unspecified; Z87.891 Personal history of nicotine dependence; B96.89 Other specified bacterial agents as the cause of diseases classified elsewhere; L03.113 Cellulitis of right upper limb; W54.0XXA Bitten by dog, initial encounter; E66.9 Obesity, unspecified; Z68.41 Body mass index [BMI] 40.0-44.9, adult; S51.851A Open bite of right forearm, initial encounter; R03.0 Elevated blood-pressure reading, without diagnosis of hypertension; A41.9 Sepsis, unspecified organism; Z88.2 Allergy status to sulfonamides